=== PATIENT | female | born 1960 | race Caucasian/White ===

== ENCOUNTER 2024-09-16 06:51 | Outpatient (OUT) | payer OTHER, SELFPAY ==
--- OUTSIDE RECORDS SUMMARY | 2024-09-16 06:53 | XMS_ITS | Encounter Summary ---
Author Organization [facility] Address [id number] [address] [place] [address] Care Team Providers Care Orthopedic Nurse Name Role Phone Neo Benjamin MD Primary Care Provider [phone] Reason for Visit * Reason Onset Date Comments Med Refill 07/27/2019 Encounter Details Date Type Department Care Team (Late st Contact Info) Description 07/27/2019 Refill [facility] [address] [place] [address] [place] [place] [address] Agnieszka Cook CMA Essential hypertension; Migraine without aura and without status migrainosus, not intractable Social History Tobacco Use Types Packs/Day Years Used Date Smoking Tobacco: Former Smokeless Tobacco: Never Alcohol Use Standard Drinks/Week Comments Yes 0 (1 standard drink = 0.6 oz pur e alcohol) rarely Childcare Answer Date Recorded Childcare Unknown 09/10/2018 Employment Answer Date Recorded Employment Unknown 09/10/2018 Comments No Sex and Gender Information Value Date Recorded Sex Assigned at Not on file Legal Sex Female 11:35 AM EDT Gender Identity Not on file Sexual Orientation Not on file COVID-19 Exposure Response Date Recorded In the last month, have you been in contact with someone who was confirmed or suspected to have Coronavirus / COVID-19? No / Unsure 07/27/2019 9:30 AM EDT documented as of this encounter Plan of Treatment Not on file documented as of this encounter Visit Diagnoses Diagnosis Essential hypertension Unspecified essential hypertension Migraine without aura and without status migrainosus, not intractable documented in this encounter Additional Health Concerns Infection Onset Date Last Indicated Resolved Time Enteric Rule-Out 11/16/2019 11/16/2019 11/16/2019 7:32 PM EDT COVID-19 Rule-Out 11/19/2019 11/19/2019 11/26/2019 11:13 PM EDT Assessment Noted Time PHQ-9 Depression Total Score: 0 09/06/19 10:00 AM EDT documented as of this encounter Care Teams Orthopedic Nurse Relationship Specialty Start Date End Date Neo Benjamin MD [address], [place] [address] PCP - General Internal Medicine 11/08/22 documented as of this encounter
--- OUTSIDE RECORDS SUMMARY | 2024-09-16 06:53 | XMS_ITS | Encounter Summary ---
Author Organization [facility] Address [address] [place] [address] Care Team Providers Care Embossing Tool Setter Name Role Phone Libby Barger MD Primary Care Provider [phone] Source Comments In the event this information is protected by the Federal Confidentiality of Alcohol and Drug AbusePatient Records regulations: The Federal rules restrict any use of the information to criminally investigate or prosecute any alcohol or drug abuse patient.[facility] Encounter Details Date Type Department Care Team (Late st Contact Info) Description 04/29/2018 Get Medical Advice Urology [address] [place] [address] Nanette Quintana, WHARFINGER CHIEF.COMPUTER AIDED DRAFTER [address] [place], [place] [id number] RE: Non-Urgent Medical Question Social History Tobacco Use Types Packs/Day Years Used Date Smoking Tobacco: Former Cigarettes 0.1 1 0 05/22/2001 - 05/22/2002 Smokeless Tobacco: Former Alcohol Use Standard Drinks/Week Comments No 0 (1 standard drink = 0.6 oz pur e alcohol) PHQ-2 Answer Date Recorded PHQ-2 score 2 04/10/2018 Comments No Sex and Gender Information Value Date Recorded Sex Assigned at Not on file Legal Sex Female 8:10 AM EST Gender Identity Not on file Sexual Orientation Not on file 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 Answer Date of Assessment Author No 09/30/2013 7:00 AM Lauren Bhardwaj MA * Are you blind or do you have serious difficulty seeing, even when wearing glasses? Answer Date of Assessment Author No 09/30/2013 7:00 AM Lauren Bhardwaj MA * Do you have serious difficulty walking or climbing stairs? Answer Date of Assessment Author No 09/30/2013 7:00 AM Lauren Bhardwaj MA * Do you have difficulty dressing or bathing? Answer Date of Assessment Author No 09/30/2013 7:00 AM EDLauren Guzmán MA * Because of a physical, mental, or emotional condition, do you have difficulty doing errands alone such as visiting a doctor's office or shopping? Answer Date of Assessment Author No 09/30/2013 7:00 AM Lauren Bhardwaj MA documented as of this encounter Mental Status * Because of a physical, mental, or emotional condition, do you have serious difficulty concentrating, remembering, or making decisions? Answer Entry Date Author No 09/30/2013 7:00 AM CHRISTIT Lauren Blakely MA documented in this encounter Plan of Treatment Upcoming Encounters Date Type Department Care Team (Latest Contact Info) Description 09/23/2024 8:15 AM EDT Appointment Radiology [address] [place] [address] Complex renal cyst [N28.1] 10/09/2024 9:00 AM EDT [facility] Urology [address] [place] [address] Nanette Quintana, WHARFINGER CHIEF.COMPUTER AIDED DRAFTER [address] [place] [address] kidney with VV post for results and plan. documented as of this encounter Visit Diagnoses Not on filedocumented in this encounter Care Teams Embossing Tool Setter Relationship Specialty Start Date End Date Wonderly, Libby Oliva MD [address] [id number] PCP - General Family Medicine 04/25/18 documented as of this encounter
--- OUTSIDE RECORDS SUMMARY | 2024-09-16 06:53 | XMS_ITS | Clinical Summary ---
Author Organization [facility] Address [address] [place] [id number] Care Team Providers Care Meter Reader Inspector Name Role Phone Libby Barger MD Primary Care Provider [phone] Allergies Active Allergy Reactions Criticality Noted Date Comments Methotrexate Other: See Comments 05/19/2018 Migraine/dizziness, Nausea/diarrhea Penicillins Hives 05/22/2007 Medications multivitamin (MULTIPLE VITAMINS) tablet Take 1 tablet by mouth once daily. 0 4 Active atenolol (TENORMIN) 50 mg tabletIndicatio ns:Acquired complex cyst of kidney,Urinary tract infection without hematuria, site unspecified,Sim ple cyst of kidney,Psoriasi s,Family history of kidney stone Take 50 mg by mouth once daily. Active eletriptan (RELPAX) 40 mg tabletIndicatio ns:Acquired complex cyst of kidney,Urinary tract infection without hematuria, site unspecified,Sim ple cyst of kidney,Psoriasi s,Family history of kidney stone Take 40 mg by mouth as needed. may repeat in 2 hours if necessary Active NALTREXONE HCL (NALTREXONE ORAL) Take 1.5 mg by mouth once daily. Active ALPRAZolam (XANAX) 0.5 mg tablet Take 0.5 mg by mouth. For flying 8 Active Active Problems Problem Noted Date Diagnosed Date Family history of psoriasis 04/10/2018 Bilateral hand pain 04/10/2018 Long-term use of high-risk medication 04/10/2018 Joint stiffness of multiple sites 04/10/2018 Pain in both feet 04/10/2018 Chronic pain of both knees 04/10/2018 Chronic pain of both shoulders 04/10/2018 Pain of both hip joints 04/10/2018 Secondary osteoarthritis of multiple sites 04/10 Aneurysm, splenic artery 11/10/2015 History of kidney stones 11/10/2015 Acquired complex cyst of kidney 05/05/2015 Urinary tract infection 05/05/2015 Urinary tract infection without hematuria 2015 Simple cyst of kidney 05/05/2015 Psoriatic arthritis 09/30/2013 Psoriasis 09/30/2013 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 09/30/2013 Methotrexate, [place] [facility], current use 09/30/2013 Family history of kidney stone 09/30/2013 Overview (09/30/2013): sister, son Encounters Date Type Department Care Team Description 08/13/2024 Get Medical Advice Urology [address] [place] [address] Nanette Quintana, DIPPER OPERATOR.E COMMERCE PROJECT MANAGER Creatine 07/17/2024 8:30 AM EDT [facility] Urology [address] [place] [address] Nanette Quintana, DIPPER OPERATOR.E COMMERCE PROJECT MANAGER Complex renal cyst (Primary Dx); Acquired cyst of kidney 07/17/2024 Telephone Urology [address] [place] [address] Nanette Quintana, DIPPER OPERATOR.E COMMERCE PROJECT MANAGER 07/16/2024 Travel from Last 3 Months Family History Medical History Relation Comments Hypertension Brother Since age 14 and difficult to control Parathyroid disease Father When he was in his forties No thyroid disease Other Relation Status Comments Brother Father Other Social History Tobacco Use Types Packs/Day Years Used Date Smoking Tobacco: Former Cigarettes 0.1 1 0 05/22/2001 - 05/22/2002 Smokeless Tobacco: Former Tobacco Cessation:Counseling Given: Yes Alcohol Use Standard Drinks/Week Comments No 0 (1 standard drink = 0.6 oz pur e alcohol) PHQ-2 Answer Date Recorded PHQ-2 score 2 04/10/2018 Area Deprivation Index Answer Date Curt rded National Score (1-100), lower number is lower ri sk 50 07/17/2024 State Score (1-10), lower number is lower risk 5 07/17/2024 Data from: https://www.neighborhoodatlas.medicine.[facility].edu/. 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 Not on file Last Filed Vital Signs Vital Sign Reading Time Taken Comments Blood Pressure 110/75 10/12/2020 9:31 AM EDT Pulse 67 10/12/2020 9:31 AM EDT Temperature - - Respiratory Rate - - Oxygen Saturation 98% 04/10/2018 9:36 AM EST Inhaled Oxygen Concentration - - Weight 55.3 kg (122 lb) 10/12/2020 9:31 AM EDT Height 163.3 cm (5' 4.3 ) 11/07/2018 8:03 AM EDT Body Mass Index 20.75 11/07/2018 8:03 AM EDT Plan of Treatment Upcoming Encounters Date Type Department Care Team (Latest Contact Info) Description 09/23/2024 8:15 AM EDT Appointment Radiology [address] [place], [place] [id number] Complex renal cyst [N28.1] 10/09/2024 9:00 AM EDT [facility] Urology [address] [place], [place] [id number] Nanette Quintana, DIPPER OPERATOR.E COMMERCE PROJECT MANAGER [address] [place] [address] kidney with VV post for results and plan. Health Maintenance Due Date Last Done Comments Anxiety Screening 1978 Depression Screening [address] Colonography 2005 Colonoscopy 2005 Fecal Occult Blood 2005 Sigmoidoscopy 2005 Pneumococcal Vaccine: 50+ (1 of 1 - PCV) 2010 Cervical Cancer Screening 09/02/20162013 (Specify Other Reason in Comment (Do not use for Postpone)) Cologuard (FIT-DNA) 03/18/2022 03/18/2019 Colorectal Cancer Screening 03/18/2022 Covid-19 Vaccine (5 - 4-2 5 season) 2024 01/31/2024, 01/09/2024, 02/01/2021, Additional history exists Mammogram Screening 03/27/2024 03/27/2023, 03/27/2023, 10/19/2021, Additional history exists Influenza Vaccine (Season Ended) 2024 02/01/2021, 12/31/2019, 01/18/2019, Additional history exists Diabetes Screening 11/07/2026 11/08/2023, 0 10/05/2021, 07/07/2020, Additional history exists Lipid Screening 04/11/2027 04/11/2022, 07/0 09/2021, 07/07/2020 DTaP,Tdap,Td Vaccine (2 - Td or Tdap) 01/18/2029 01/18/2019 RSV Vaccine (1 - 1-dose 75+ series) 11/10/2035 Shingrix Vaccine Completed 04/04/2018, , 11/06/2017 Hepatitis C Screening Completed 07/07/2020 , 04/10/2018, 09/02/2013 Procedures Procedure Name Priority Date/Time Associated Diagnosis Comments HEP REMOTE PANEL BL Routine 04/10/2018 1 0:50 AM EST Elevated LFTs COMPREHENSIVE METABOLIC PANEL Routine 04/10/2018 10:50 AM EST Elevated LFTs from Last 3 Months or Most Recently Relevant to Health Maintenance Results * HEP REMOTE PANEL BL (04/10/2018 10:50 AM EST) Hep B Core Ab, Total Negative Negative 04/10/2018 8:38 PM EST [facility] Hep C Antibody IA Negative Negative 04/10/2018 8:38 PM EST [facility] HBsAg Negative Negative 04/10/2018 8:38 PM EST [facility] Hep B Surface Ab, Qual Negative Negative 04/10/2018 8:38 PM EST [facility] Comment:NEGATIVE Blood specimen (specimen) BLOOD SPECIMEN / Unknown 04/10/2018 10:50 AM EST 04/10/2018 10:52 AM EST Huyen Lovell MD LABORATORY Final Result [facility] [address] [place] [address] * (ABNORMAL) COMP METABOLIC PANEL (04/10/2018 10:50 AM EST) Protein, Total 8.2(H) 6.3 - 8.0 g/dL 04/10/2018 6:46 PM EST [facility] Albumin 4.4 3.9 - 4.9 g/dL 04/10/2018 6:46 PM EST [facility] Calcium 10.5(H) 8.5 - 10.2 mg/dL 04/10/2018 6:46 PM EST [facility] Bilirubin, Total 0.4 0.2 - 1.3 mg/dL 04/10/2018 6:46 PM EST [facility] Alkaline Phosphatase 118 34 - 123 U/L 04/10/2018 6:46 PM EST [facility] AST 30 13 - 35 U/L 04/10/2018 6:46 PM EST [facility] Glucose 90 74 - 99 mg/dL 04/10/2018 6:46 PM EST [facility] Comment: The [place] Diabetes Association (ADA) provides guidance for cutoff values for fasting glucose and random glucose. The ADA defines fasting as no caloric intake for at least 8 hours. Fasting plasma glucose results between 100 to 125 mg/dL indicate increased risk for diabetes (prediabetes). Fasting plasma glucose results greater than or equal to 126 mg/dL meet the criteria for diagnosis of diabetes. In the absence of unequivocal hyperglycemia, results should be confirmed by repeat testing. In a patient with classic symptoms of hyperglycemia or hyperglycemic crisis, random plasma glucose results greater than or equal to 200 mg/dL meet the criteria for diagnosis of diabetes. Reference: Standards of Medical Care in Diabetes 2016, [place] Diabetes Association. Diabetes Care. 2016.39(Suppl 1). BUN 12 7 - 21 mg/dL 04/10/2018 6:46 PM EST [facility] Creatinine 0.85 0.58 - 0.96 mg/dL 04/10/2018 6:46 PM [facility] Sodium 143 136 - 144 mmol/L 04/10/2018 6:46 PM EST [facility] Potassium 4.6 3.7 - 5.1 mmol/L 04/10/2018 6:46 PM [facility] Chloride 103 97 - 105 mmol/L 04/10/2018 6:46 PM [facility] CO2 27 22 - 30 mmol/L 04/10/2018 6:46 PM EST [facility] Anion Gap 13 9 - 18 mmol/L 04/10/2018 6:46 PM [facility] ALT 18 7 - 38 U/L 04/10/2018 6:46 PM [facility] eGFR- >60 04/10/2018 6:46 PM [facility] eGFR-All Other Races >60 . 04/10/2018 6:46 PM [facility] Comment: eGFR (Estimated GFR) Units of measure: mL/min/1.73 meters squared eGFR is derived from the reexpressed MDRD Study equation using the following parameters: serum creatinine, age, gender and race. The creatinine assay has been calibrated to be traceable to IDMS. An eGFR <60 mL/min/1.73m2 for >3 months is consistent with chronic kidney disease. Refer to KDOQI guidelines for clinical interpretation. In patients with unstable renal function, e.g. those with acute kidney injury, the eGFR may not accurately reflect actual GFR. Blood specimen (specimen) BLOOD SPECIMEN / Unknown 04/10/2018 10:50 AM EST 04/10/2018 10:52 AM EST Huyen Lovell MD LABORATORY Final Result [facility] [address] [place] [address] from Last 3 Months or Most Recently Relevant to Health Maintenance Insurance [facility] Care Teams Meter Reader Inspector Relationship Specialty Start Date End Date Casely, Libby Oliva MD [address] [place] [address] PCP - General Family Medicine 04/25/18
--- OUTSIDE RECORDS SUMMARY | 2024-09-16 06:53 | XMS_ITS | Encounter Summary ---
Author Organization [facility] Address [facility] [place] [address] Care Team Providers Care Senior Net Software Developer Name Role Phone Julian Ryan Vick Primary Care Provider [phone] Libby Barger MD Primary Care Provider [phone] Source Comments In the event this information is protected by the Federal Confidentiality of Alcohol and Drug AbusePatient Records regulations: The Federal rules restrict any use of the information to criminally investigate or prosecute any alcohol or drug abuse patient.[facility] Encounter Details Date Type Department Care Team (Late st Contact Info) Description 06/04/2017 Abstract Urology [address] [place] [address] Nanette Quintana, TOOL ROOM ATTENDANT.SEXER [address] [place] [address] Social History Tobacco Use Types Packs/Day Years Used Date Smoking Tobacco: Former Cigarettes 0.1 1 0 05/22/2001 - 05/22/2002 Alcohol Use Standard Drinks/Week Comments No 0 (1 standard drink = 0.6 oz pur e alcohol) Comments No Sex and Gender Information Value Date Recorded Sex Assigned at Not on file Legal Sex Female 8:10 AM EST Gender Identity Not on file Sexual Orientation Not on file 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 Answer Date of Assessment Author No 09/30/2013 7:00 AM EDLauren Guzmán MA * Are you blind or do you have serious difficulty seeing, even when wearing glasses? Answer Date of Assessment Author No 09/30/2013 7:00 AM CHRISTIT Lauren Blakely MA * Do you have serious difficulty walking or climbing stairs? Answer Date of Assessment Author No 09/30/2013 7:00 AM Lauren Bhardwaj MA * Do you have difficulty dressing or bathing? Answer Date of Assessment Author No 09/30/2013 7:00 AM EDT Lauren Blakely MA * Because of a physical, mental, [...] 09/23/2024 8:15 AM EDT Appointment Radiology [address] [place] [address] Complex renal cyst [N28.1] 10/09/2024 9:00 AM EDT [facility] Urology [address] [place], [place] [id number] Nanette Quintana, TOOL ROOM ATTENDANT.SEXER [address] [place] [address] kidney with VV post for results and plan. documented as of this encounter Visit Diagnoses Not on filedocumented in this encounter Care Teams Senior Net Software Developer Relationship Specialty Start Date End Date Ryan Jordan [address] [facility] Risa [facility] [place] [address] PCP - General Family Medicine 05/19/13 04/24/18 Wonderly, Libby Oliva MD [address] [place], [place] [id number] PCP - General Family Medicine 04/25/18 documented as of this encounter
--- OUTSIDE RECORDS SUMMARY | 2024-09-16 06:53 | XMS_ITS | Encounter Summary ---
Author Organization [facility] Address [id number] [address] [place] [address] Care Team Providers Care Emergency Department Physician Name Role Phone Neo Benjamin MD Primary Care Provider [phone] Encounter Details Date Type Department Care Team (Late st Contact Info) Description 11/16/2019 [facility] [address] [facility] [place] [address] [place] [address] Sue Redman CMA Social History Tobacco Use Types Packs/Day Years Used Date Smoking Tobacco: Former Smokeless Tobacco: Never Alcohol Use Standard Drinks/Week Comments Yes 0 (1 standard drink = 0.6 oz pur e alcohol) rarely Social Connection and Isolat ion Panel [NHANES] Answer Date Recorded In a typical week, how many times do you talk on the phone with family, friends, or neighbors? More than three times a week 09/06/2019 How often do you get togethe r with friends or relatives? Once a week 09/06/2019 How often do you attend chur ch or sabianism services? More than 4 times per year 09/06/2019 Do you belong to any clubs o r organizations such as nondenominational groups, unions, fraternal or athletic groups, or school groups? Yes 09/06/2019 How often do you attend meet ings of the clubs or organizations you belong to? More than 4 times per year 09/06/2019 Are you , , di vorced, , never , or living with a partner? 09/06/2019 AUDIT-C Answer Date Recorded Q1: How often do you have a drink containing alc ohol? 2-4 times a month 09/06/2019 Q2: How many drinks containi ng alcohol do you have on a typical day when you are drinking? 1 or 2 09/06/2019 Q3: How often do you have si x or more drinks on one occasion? Never 09/06/2019 Overall Financial Resource Strain (CARDIA) Answe r Date Recorded How hard is it for you to pa y for the very basics like food, housing, medical care, and heating? Not hard at all 09/06/2019 PHQ-2 Answer Date Recorded Total Score 8 09/06/2019 [facility] of Occupat ional Health - Occupational Stress Questionnaire Answer Date Recorded Do you feel stress - tense, restless, nervous, or anxious, or unable to sleep at night because your mind is troubled all the time - these days? Rather much 09/06/2019 Exercise Vital Sign Answer Date Recorde d On average, how many days pe r week do you engage in moderate to strenuous exercise (like a brisk walk)? 7 days 09/06/2019 On average, how many minutes do you engage in exercise at this level? 20 min 09/06/2019 PRAPARE - Transportation Answer Date Re corded In the past 12 months, has l ack of transportation kept you from medical appointments or from getting medications? No 09/2019 In the past 12 months, has l ack of transportation kept you from meetings, work, or from getting things needed for daily living? No 09/06/2019 Childcare Answer Date Recorded Do problems getting child ca re make it difficult for you to work or study? No 09/06/2019 Employment Answer Date Recorded Do you need help finding a l ocal career center and/or a training program? No 09/06/2019 Education Answer Date Recorded What is the highest level of school you have completed or the highest degree you have received? 12th grade 09/06/2019 Comments No Sex and Gender Information Value Date Recorded Sex Assigned at Not on file Legal Sex Female 11:35 AM EDT Gender Identity Not on file Sexual Orientation Not on file COVID-19 Exposure Response Date Recorded In the last month, have you been in contact with someone who was confirmed or suspected to have Coronavirus / COVID-19? No / Unsure 11/13/2019 8:22 AM EDT documented as of this encounter Miscellaneous Notes * Telephone Encounter - Sue Redman CMA - 11/16/2019 2:46 PM EDT ----- Message from Honey Grullon APRN-WATER CONTROL STATION ENGINEER sent at 11/15/2019 3:39 PM EDT ----- CBC - all values WNL * Telephone Encounter - Sue Redman CMA - 11/16/2019 2:46 PM EDT Patient to call back Sue Redman CMA 11/16/19 [id number] * Telephone Encounter - Sue Redman CMA - 11/16/2019 2:46 PM EDT Patient informed documented in this encounter Plan of Treatment Not on file documented as of this encounter Visit Diagnoses Not on filedocumented in this encounter Additional Health Concerns Infection Onset Date Last Indicated Resolved Time Enteric Rule-Out 11/16/2019 11/16/2019 11/16/2019 7:32 PM EDT COVID-19 Rule-Out 11/19/2019 11/19/2019 11/26/2019 11:13 PM EDT Assessment Noted Time PHQ-9 Depression Total Score: 8 09/06/19 20 7:22 AM EDT documented as of this encounter Care Teams Emergency Department Physician Relationship Specialty Start Date End Date Neo Benjamin MD [address], [place] [address] PCP - General Internal Medicine 11/08/22 documented as of this encounter
--- OUTSIDE RECORDS SUMMARY | 2024-09-16 06:53 | XMS_ITS | Encounter Summary ---
Author Organization [facility] s tem Address [id number] [address] [place] [address] Care Team Providers Care Bobbin Winder Name Role Phone Neo Benjamin MD Primary Care Provider [phone] Encounter Details Date Type Department Care Team (Late st Contact Info) Description 04/06/2022 [facility]phone [facility] [address] [place] [address] [place] [address] Kaylie Powell CMA Social History Tobacco Use Types Packs/Day Years Used Date Smoking Tobacco: Former Smokeless Tobacco: Never Alcohol Use Standard Drinks/Week Comments Yes 0 (1 standard drink = 0.6 oz pur e alcohol) rarely Social Connection and Isolation Panel [NHANES] A nswer Date Recorded In a typical week, how many times do you talk on the phone with family, friends, or neighbors? Three times a week 07/03/2021 How often do you get togethe r with friends or relatives? Three times a week 07/03/2021 How often do you attend chur ch or orthodoxy services? Never 07/03/2021 Do you belong to any clubs o r organizations such as advent groups, unions, fraternal or athletic groups, or school groups? No 07/03/2021 How often do you attend meet ings of the clubs or organizations you belong to? Never 07/03/2021 Are you , , di vorced, , never , or living with a partner? 07/03/2021 AUDIT-C Answer Date Recorded Q1: How often do you have a drink containing alc ohol? 2-4 times a month 07/03/2021 Q2: How many drinks containi ng alcohol do you have on a typical day when you are drinking? 1 or 2 07/03/2021 Q3: How often do you have si x or more drinks on one occasion? Never 07/03/2021 Overall Financial Resource Strain (CARDIA) Answe r Date Recorded How hard is it for you to pa y for the very basics like food, housing, medical care, and heating? Not hard at all 07/03/2021 PHQ-2 Answer Date Recorded Total Score 6 04/05/2022 [facility] [place] [employer] of Occupat ional Health - Occupational Stress Questionnaire Answer Date Recorded Do you feel stress - tense, restless, nervous, or anxious, or unable to sleep at night because your mind is troubled all the time - these days? Only a little 07/03/2021 Exercise Vital Sign Answer Date Recorde d On average, how many days pe r week do you engage in moderate to strenuous exercise (like a brisk walk)? 3 days 07/03/2021 On average, how many minutes do you engage in exercise at this level? 30 min 07/03/2021 PRAPARE - Transportation Answer Date Re corded In the past 12 months, has l ack of transportation kept you from medical appointments or from getting medications? No 06/2021 In the past 12 months, has l ack of transportation kept you from meetings, work, or from getting things needed for daily living? No 07/03/2021 Childcare Answer Date Recorded Do problems getting child ca re make it difficult for you to work or study? No 07/03/2021 Employment Answer Date Recorded Do you need help finding a l ocal career center and/or a training program? No 07/03/2021 Purpose - Life Answer Date Recorded I have a purpose and direction in my life. Agree 07/03/2021 Education Answer Date Recorded What is the [...] have Coronavirus / COVID-19? No / Unsure 04/05/2022 7:30 AM EST documented as of this encounter Plan of Treatment Not on file documented as of this encounter Visit Diagnoses Not on filedocumented in this encounter Additional Health Concerns Assessment Noted Time PHQ-9 Depression Total Score: 6 04/05/19 7:36 AM EST documented as of this encounter Care Teams Bobbin Winder Relationship Specialty Start Date End Date Neo Benjamin MD [address] [facility] [address] PCP - General Internal Medicine 11/08/22 documented as of this encounter
--- OUTSIDE RECORDS SUMMARY | 2024-09-16 06:53 | XMS_ITS | Encounter Summary ---
Author Organization [facility] [employer] [facility] [employer] Address [id number] [address] [place] [address] Care Team Providers Care Plug Shaper Hand Name Role Phone Neo Benjamin MD Primary Care Provider [phone] Encounter Details Date Type Department Care Team (Late st Contact Info) Description 11/13/2022 Orders Only [facility] [address] [place] [address] [place] [address] External, Scanning Provider Social History Tobacco Use Types Packs/Day Years [...] often do you attend chur ch or uatsdin services? Never 07/03/2021 Do you belong to any clubs o r organizations such as adventist groups, unions, fraternal or athletic groups, or [...] 07/03/2021 PHQ-2 Answer Date Recorded Total Score 3 07/25/2022 [facility] [place] of Occupat ional Health - Occupational Stress [...] on file Sexual Orientation Not on file documented as of this encounter Plan of Treatment Not on file documented as of this encounter Procedures Procedure Name Priority Date/Time Associated Diagnosis Comments ECHO CONGENITAL COMPLETE WITH CONTRAST Routine 11/12/2022 8:01 AM EDT ECHO CONGENITAL COMPLETE WITH CONTRAST Routine 11/12/2022 8:00 AM EDT documented in this encounter Results * Echo congenital complete W/ contrast (11/12/2022 8:00 AM EDT) Anatomical Region Laterality Modality Chest N/A Ultrasound us Scanning Provider External CV ECHO ORDERABLES Fi nal Result documented in this encounter Visit Diagnoses Not on filedocumented in this encounter Additional Health Concerns Assessment Noted Time PHQ-9 Depression Total Score: 3 07/26/19 23 8:17 AM EDT documented as of this encounter Care Teams Plug Shaper Hand Relationship Specialty Start Date End Date Neo Benjamin MD [address], [place] [address] PCP - General Internal Medicine 11/08/22 documented as of this encounter
--- OUTSIDE RECORDS SUMMARY | 2024-09-16 06:53 | XMS_ITS | Encounter Summary ---
Author Organization [facility] Address [address] [place] [address] Care Team Providers Care Major Assembly Inspector Name Role Phone Ryan Jordan Primary Care Provider Libby Barger MD Primary Care Provider [phone] Source Comments In the event this information is protected by the Federal Confidentiality of Alcohol and Drug AbusePatient Records regulations: The Federal rules restrict any use of the information to criminally investigate or prosecute any alcohol or drug abuse patient.[facility] Encounter Details Date Type Department Care Team (Late st Contact Info) Description 09/28/2015 Patient Msg Urology [address] [place] [address] Sohail Tijerina MD [address] [place], [place] [id number] RE: Appointment Cancellation Request Social History Tobacco Use Types Packs/Day Years [...] 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 documented as of this encounter Visit Diagnoses Not on filedocumented in this encounter Care Teams Major Assembly Inspector Relationship Specialty Start Date End Date JulianRyanTitus [address] [place] [facility] [place] [address] PCP - General Family Medicine 05/19/13 04/24/18 CaselyLibby MD [address] [place], [place] [address] PCP - General Family Medicine 04/25/18 documented as of this encounter
--- OUTSIDE RECORDS SUMMARY | 2024-09-16 06:53 | XMS_ITS | Encounter Summary ---
Author Organization [facility] Address [address] [place] [address] Care Team Providers Care Cte Teacher Name Role Phone Ryan Jordan Primary Care Provider [phone] Libby Barger MD Primary Care Provider [phone] Source Comments In the event this information is protected by the Federal Confidentiality of Alcohol and Drug AbusePatient Records regulations: The Federal rules restrict any use of the information to criminally investigate or prosecute any alcohol or drug abuse patient.[facility] Encounter Details Date Type Department Care Team (Late st Contact Info) Description 09/29/2015 Patient Msg Urology [address] [place] [address] Sohail Tijerina MD [address] [place], [place] [phone] RE: Appointment Cancellation Request Social History Tobacco [...] 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 documented as of this encounter Visit Diagnoses Not on filedocumented in this encounter Care Teams Cte Teacher Relationship Specialty Start Date End Date JulianRyanTitus [address] [facility] [place] [address] PCP - General Family Medicine 05/19/13 04/24/18 CaselyLibby MD [address] [place], [place] [address] PCP - General Family Medicine 04/25/18 documented as of this encounter
--- OUTSIDE RECORDS SUMMARY | 2024-09-16 06:53 | XMS_ITS | Encounter Summary ---
Author [facility] Address [id number] [address] [place] [address] Care Team Providers Care Bar Hostess Name Role Phone Neo Benjamin MD Primary Care Provider [phone] Encounter Details Date Type Department Care Team (Late st Contact Info) Description 04/12/2022 [facility]phone [facility] [address] [place] [address] [place] [address] Jacquelin Best CMA Social History Tobacco Use Types Packs/Day [...] often do you attend chur ch or church services? Never 07/03/2021 Do you belong to any clubs o r organizations such as mu-ism groups, unions, fraternal or athletic groups, or [...] Answer Date Recorded Total Score 6 04/05/2022 [facility] [place] of Occupat ional Health - Occupational Stress [...] have Coronavirus / COVID-19? No / Unsure 04/11/2022 8:19 AM EST documented as of this encounter Miscellaneous Notes * Telephone Encounter - Jacquelin Best CMA - 04/12/2022 11:42 AM EST ----- Message from BARBY Hwang sent at 04/11/2022 2:02 PM EST ----- Cholesterol has improved at 238 from 274; triglycerides have increased from 122 to 174 & LDL has improved from 189 to 152- will discuss further at her next appointment as scheduled * Telephone Encounter - Jacquelin Best CMA - 04/12/2022 11:42 AM EST Called patient no answer left a message to call back. documented in this encounter Plan of Treatment Not on file documented as of this encounter Visit Diagnoses Not on filedocumented in this encounter Additional Health Concerns Assessment Noted Time PHQ-9 Depression Total Score: 6 04/05/19 7:36 AM EST documented as of this encounter Care Teams Bar Hostess Relationship Specialty Start Date End Date Neo Benjamin MD [address] [facility] [place] [address] PCP - General Internal Medicine 11/08/22 documented as of this encounter
--- OUTSIDE RECORDS SUMMARY | 2024-09-16 06:53 | XMS_ITS | Encounter Summary ---
Author Organization [facility] Address [id number] [address] [place] [address] Care Team Providers Care Housekeeping Aide Name Role Phone Neo Benjamin MD Primary Care Provider Encounter Details Date Type Department Care Team (Late st Contact Info) Description 01/02/2021 Orders Only [facility] [address] [place] [address] [place] [address] Deanne Doherty CMA Social History Tobacco Use Types Packs/Day [...] often do you attend chur ch or adventism services? More than 4 times per year 09/06/2019 Do you belong to any clubs o r organizations such as latter day groups, unions, fraternal or athletic groups, or [...] Answer Date Recorded Total Score 8 09/06/2019 [facility] [place] of Occupat ional Health - Occupational Stress [...] center and/or a training program? No 09/06/2019 Purpose - Life Answer Date Recorded Purpose and direction in life Unknown Education Answer Date Recorded What is the [...] have Coronavirus / COVID-19? No / Unsure 01/02/2021 7:54 AM EDT documented as of this encounter Plan of Treatment Not on file documented as of this encounter Visit Diagnoses Not on filedocumented in this encounter Additional Health Concerns Assessment Noted Time PHQ-9 Depression Total Score: 8 09/06/19 20 7:22 AM EDT documented as of this encounter Care Teams Housekeeping Aide Relationship Specialty Start Date End Date Neo Benjamin MD [address] [place] [address] PCP - General Internal Medicine 11/08/22 documented as of this encounter
--- OUTSIDE RECORDS SUMMARY | 2024-09-16 06:53 | XMS_ITS | Encounter Summary ---
Author Organization [facility] Address [id number] [address] [place] [address] Care Team Providers Care Brokerage Office Manager Name Role Phone Neo Benjamin MD Primary Care Provider [phone] Encounter Details Date Type Department Care Team (Late st Contact Info) Description 10/05/2021 Telephone [facility] [address] [place] [address] [place] [address] Annie Platt CMA Social History Tobacco Use Types Packs/Day [...] often do you attend chur ch or islam services? Never 07/03/2021 Do you belong to any clubs o r organizations such as restorationism groups, unions, fraternal or athletic groups, or [...] 07/03/2021 PHQ-2 Answer Date Recorded Total Score 0 07/13/2021 [facility] [place] of Occupat ional Health - Occupational Stress [...] have Coronavirus / COVID-19? No / Unsure 10/05/2021 7:53 AM EDT documented as of this encounter Miscellaneous Notes * Telephone Encounter - Annie Platt CMA - 10/05/2021 5:09 PM EDT ----- Message from BARBY Hwang sent at 10/05/2021 4:24 PM EDT ----- Left breast negative; Right breast needs diagnostic mammogram and US. * Telephone Encounter - Annie Platt CMA - 10/05/2021 5:09 PM EDT Spoke with patient she is awaiting a call from scheduling for additional testing as advised. documented in this encounter Plan of Treatment Not on file documented as of this encounter Visit Diagnoses Not on filedocumented in this encounter Additional Health Concerns Assessment Noted Time PHQ-9 Depression Total Score: 0 07/14/19 22 9:00 AM EDT documented as of this encounter Care Teams Brokerage Office Manager Relationship Specialty Start Date End Date Neo Benjamin MD 605 [facility] [address] PCP - General Internal Medicine 11/08/22 documented as of this encounter
--- OUTSIDE RECORDS SUMMARY | 2024-09-16 06:53 | XMS_ITS | Encounter Summary ---
Author Organization [facility] Address [address] [place] [address] Care Team Providers Care Director Labor Standards Name Role Phone Ryan Jordan Primary Care Provider [phone] Libby Barger MD Primary Care Provider [phone] Source Comments In the event this information is protected by the Federal Confidentiality of Alcohol and Drug AbusePatient Records regulations: The Federal rules restrict any use of the information to criminally investigate or prosecute any alcohol or drug abuse patient.[facility] Encounter Details Date Type Department Care Team (Late st Contact Info) Description 04/11/2018 Patient Msg Rheumatology [address] [place], [place] [phone] Huyen Lovell MD [address] [place] [address] test results Social History Tobacco Use Types Packs/Day Years [...] 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 documented as of this encounter Visit Diagnoses Not on filedocumented in this encounter Care Teams Director Labor Standards Relationship Specialty Start Date End Date Ryan Jordan [address] [facility] [place] [address] PCP - General Family Medicine 05/19/13 04/24/18 Libby Barger MD [address] [facility] [place] [address] PCP - General Family Medicine 04/25/18 documented as of this encounter
--- OUTSIDE RECORDS SUMMARY | 2024-09-16 06:53 | XMS_ITS | Encounter Summary ---
Author Organization [facility] Address [address] [place] [address] Care Team Providers Care Padded Products Inspector Trimmer Name Role Phone Ryan Jordan Primary Care Provider Libby Barger MD Primary Care Provider [phone] Source Comments In the event this information is protected by the Federal Confidentiality of Alcohol and Drug AbusePatient Records regulations: The Federal rules restrict any use of the information to criminally investigate or prosecute any alcohol or drug abuse patient.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 Answer Date of Assessment Author No 09/30/2013 7:00 AM EDT Lauren Blakely MA * Are you blind or do you have serious difficulty seeing, even when wearing glasses? Answer Date of Assessment Author No 09/30/2013 7:00 AM Lauren Bhardwaj MA * Do you have serious difficulty walking or climbing stairs? Answer Date of Assessment Author No 09/30/2013 7:00 AM CHRISTIT Lauren Blakely MA * Do you have difficulty dressing [...] Entry Date Author No 09/30/2013 7:00 AM Lauren Bhardwaj MA documented in this encounter Plan of Treatment Upcoming Encounters Date Type Department Care Team (Latest Contact Info) Description 09/23/2024 8:15 AM EDT Appointment Radiology [address] [place] [address] Complex renal cyst [N28.1] 10/09/2024 9:00 AM EDT [facility] Urology [address] [place] [address] Nanette Quintana, INSTALLER INSPECTOR FINAL.VETERINARY TECHNOLOGIST [address] [place] [address] kidney with VV post for results and plan. documented as of this encounter Visit Diagnoses Not on filedocumented in this encounter Care Teams Padded Products Inspector Trimmer Relationship Specialty Start Date End Date Ryan Jordan [address] [facility] [place] [address] PCP - General Family Medicine 05/19/13 04/24/18 Wonderly, Libby Oliva MD [address] [place], [place] [address] PCP - General Family Medicine 04/25/18 documented as of this encounter
--- OUTSIDE RECORDS SUMMARY | 2024-09-16 06:53 | XMS_ITS | Encounter Summary ---
Author Organization [facility] [employer] [facility] Address [id number] [address] [place] [address] Care Team Providers Care Senior Front End Web Developer Name Role Phone Neo Benjamin MD Primary Care Provider [phone] Reason for Visit * Reason Onset Date Comments Med Refill 09/03/2017 Encounter Details Date Type Department Care Team (Late st Contact Info) Description 09/03/2017 Refill [facility] [address] [place] [address] [place] [address] Dasha Clifton, HIRAM Essential hypertension; Migraine without aura and without status migrainosus, not intractable Social History Tobacco Use Types Packs/Day Years Used Date Smoking Tobacco: Former Alcohol Use Standard Drinks/Week Comments No 0 (1 standard drink = 0.6 oz pur e alcohol) Comments Unknown Sex and Gender Information Value Date Recorded Sex Assigned at Not on file Legal Sex Female 11:35 AM EDT Gender Identity Not on file Sexual Orientation Not on file documented as of this encounter Miscellaneous Notes * Telephone Encounter - Dasha Clifton MA - 09/03/2017 11:59 AM EDT Should be printed please and thanks Dasha Clifton MA 09/03/17 1208 documented in this encounter Plan of Treatment [...] documented as of this encounter Care Teams Senior Front End Web Developer Relationship Specialty Start Date End Date Neo Benjamin MD [address] [facility] [address] [facility] [place] [address] PCP - General Internal Medicine 11/08/22 documented as of this encounter
--- OUTSIDE RECORDS SUMMARY | 2024-09-16 06:53 | XMS_ITS | Encounter Summary ---
Author Organization [facility] Address [address] [place] [address] Care Team Providers Care Blind Hanger Name Role Phone Libby Barger MD Primary Care Provider [phone] Source Comments In the event this information is protected by the Federal Confidentiality of Alcohol and Drug AbusePatient Records regulations: The Federal rules restrict any use of the information to criminally investigate or prosecute any alcohol or drug abuse patient.[facility] Encounter Details Date Type Department Care Team (Late st Contact Info) Description 05/05/2018 Get Medical Advice Rheumatology [address] [place], [place] [phone] Huyen Lovell MD [address] [place] [address] RE: Medication Question (Not Renewal) Social History Tobacco Use Types Packs/Day Years [...] 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 documented as of this encounter Visit Diagnoses Not on filedocumented in this encounter Care Teams Blind Hanger Relationship Specialty Start Date End Date Wonderly, Libby Oliva MD [address] [place] [id number] PCP - General Family Medicine 04/25/18 documented as of this encounter
--- OUTSIDE RECORDS SUMMARY | 2024-09-16 06:53 | XMS_ITS | Encounter Summary ---
Author Organization [facility] Address [address] [place] [address] Care Team Providers Care Head Char Filter Tank Tender Name Role Phone Libby Barger MD Primary Care Provider [phone] Source Comments In the event this information is protected by the Federal Confidentiality of Alcohol and Drug AbusePatient Records regulations: The Federal rules restrict any use of the information to criminally investigate or prosecute any alcohol or drug abuse patient.[facility] Encounter Details Date Type Department Care Team (Late st Contact Info) Description 06/06/2018 Patient Msg Rheumatology [address] [place], [place] [phone] Huyen Lovell MD [address] [place] [address] RE: Request an Appointment Social History Tobacco Use Types Packs/Day Years [...] 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 documented as of this encounter Visit Diagnoses Not on filedocumented in this encounter Care Teams Head Char Filter Tank Tender Relationship Specialty Start Date End Date Wonderly, Libby Oliva MD [address] [place] [address] PCP - General Family Medicine 04/25/18 documented as of this encounter
--- OUTSIDE RECORDS SUMMARY | 2024-09-16 06:53 | XMS_ITS | Encounter Summary ---
Author Organization [facility] Address [id number] [address] [place] [address] Care Team Providers Care Plumbing Hardware Assembler Name Role Phone Neo Benjamin MD Primary Care Provider [phone] Reason for Visit * Reason Onset Date Comments Med Refill 03/05/2024 Encounter Details Date Type Department Care Team (Late st Contact Info) Description 03/05/2024 Refill [facility] [address] [place] [address] [place] [address] Neo Benjamin MD [address], [place], [place] [id number] Social History Tobacco Use Types Packs/Day Years [...] often do you attend chur ch or roman catholic services? Never 07/03/2021 Do you belong to any clubs o r organizations such as adventism groups, unions, fraternal or athletic groups, or [...] care, and heating? Not hard at all 01/21/2023 PHQ-2 Answer Date Recorded Total Score 0 09/11/2023 [facility] of Occupat ional Health - Occupational Stress [...] medical appointments or from getting medications? No 12/31 In the past 12 months, has l ack of transportation kept you from meetings, work, or from getting things needed for daily living? No 01/21/2023 Housing Instability Answer Date Recorde d Are you worried or concerned that in the next two months you may not have stable housing that you own, rent or stay in as a part of a household? No 01/21/2023 Childcare Answer Date Recorded Do problems getting child ca re make it difficult for you to work or study? No 07/03/2021 Employment Answer Date Recorded Do you need help finding a l ocal career center and/or a training program? No 07/03/2021 Hunger Screening Answer Date Recorded Within the past 12 months we worried whether our food would run out before we got money to buy more. Never True 09/11/2023 Within the past 12 months th e food we bought just didn't last and we didn't have money to get more. Never True 09/11/2023 Purpose - Life Answer Date Recorded I [...] Noted Time PHQ-9 Depression Total Score: 0 09/11/19 24 8:19 AM EDT documented as of this encounter Care Teams Plumbing Hardware Assembler Relationship Specialty Start Date End Date Neo Benjamin MD [address] [facility] [place] [address] PCP - General Internal Medicine 11/08/22 documented as of this encounter
--- OUTSIDE RECORDS SUMMARY | 2024-09-16 06:53 | XMS_ITS | Encounter Summary ---
Author Organization [facility] Address [address] [place] [address] Care Team Providers Care Advertising Supervisor Name Role Phone Libby Barger MD Primary Care Provider [phone] Source Comments In the event this information is protected by the Federal Confidentiality of Alcohol and Drug AbusePatient Records regulations: The Federal rules restrict any use of the information to criminally investigate or prosecute any alcohol or drug abuse patient.[facility] Encounter Details Date Type Department Care Team (Late st Contact Info) Description 05/18/2018 Patient Msg Dermatology [place] [address] [place] [id number] Thi Torres MD [address] [place] [address] Appointment Cancellation Request Social History Tobacco Use [...] 09/23/2024 8:15 AM EDT Appointment Radiology [address] [place] [address] Complex renal cyst [N28.1] 10/09/2024 9:00 AM EDT [facility] Urology [address] [place] [address] Nanette Quintana, ELECTRON BEAM PHOTO MASK TECHNICIAN.MAINTENANCE ASSISTANT [address] [place] [address] kidney with VV post for results and plan. documented as of this encounter Visit Diagnoses Not on filedocumented in this encounter Care Teams Advertising Supervisor Relationship Specialty Start Date End Date Wonderly, Libby Oliva MD [address] [id number] PCP - General Family Medicine 04/25/18 documented as of this encounter
--- OUTSIDE RECORDS SUMMARY | 2024-09-16 06:53 | XMS_ITS | Encounter Summary ---
Author Organization [facility] Address [address] [place] [address] Care Team Providers Care Finish Specialist Name Role Phone Julian Ryan Vick Primary Care Provider Libby Barger MD Primary Care Provider [phone] Source Comments In the event this information is protected by the Federal Confidentiality of Alcohol and Drug AbusePatient Records regulations: The Federal rules restrict any use of the information to criminally investigate or prosecute any alcohol or drug abuse patient.[facility] Encounter Details Date Type Department Care Team (Late st Contact Info) Description 10/05/2015 Get Medical Advice Urology [address] [place] [address] Sohail Tijerina MD [address] [place] [address] RE: Non-Urgent Medical Question Social History Tobacco [...] 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 documented as of this encounter Visit Diagnoses Not on filedocumented in this encounter Care Teams Finish Specialist Relationship Specialty Start Date End Date Julian Titus [address] [place] [address] PCP - General Family Medicine 05/19/13 04/24/18 Casely, Libby Oliva MD [address] [place], [place] [id number] PCP - General Family Medicine 04/25/18 documented as of this encounter
--- OUTSIDE RECORDS SUMMARY | 2024-09-16 06:53 | XMS_ITS | Encounter Summary ---
Author Organization [facility] Address [id number] [address] [place] [address] Care Team Providers Care Hood Maker Name Role Phone Neo Benjamin MD Primary Care Provider Encounter Details Date Type Department Care Team (Late st Contact Info) Description 04/04/2021 Refill [facility] [address] [place] [address] [address] [address] Annie Platt CMA Essential hypertension; Migraine without aura and [...] often do you attend chur ch or quaker services? More than 4 times per year 09/06/2019 Do you belong to any clubs o r organizations such as zoroastrian groups, unions, fraternal or athletic groups, or [...] Answer Date Recorded Total Score 8 09/06/2019 [facility] [place] of Occupat ional Health - Occupational Stress [...] Recorded Do you need help finding a [facility] career [facility] and/or a training program? No [...] encounter Miscellaneous Notes * Telephone Encounter - BARBY Resendiz - 04/04/2021 12:31 PM EST Could you please send this one to [employer] deshawn please documented in this encounter Plan of Treatment Not on file documented as of this encounter Visit Diagnoses Diagnosis Essential hypertension Unspecified essential hypertension Migraine without aura and without status migrainosus, not intractable documented in this encounter Additional Health Concerns Assessment Noted Time PHQ-9 Depression Total Score: 8 09/06/19 20 7:22 AM EDT documented as of this encounter Care Teams Hood Maker Relationship Specialty Start Date End Date Neo Benjamin MD [address], [place] [address] PCP - General Internal Medicine 11/08/22 documented as of this encounter
--- OUTSIDE RECORDS SUMMARY | 2024-09-16 06:53 | XMS_ITS | Encounter Summary ---
Author Organization [facility] Address [id number] [address] [place] [address] Care Team Providers Care Commuter Train Operator Name Role Phone Neo Benjamin MD Primary Care Provider [phone] Encounter Details Date Type Department Care Team (Late st Contact Info) Description 10/09/2021 Telephone [facility] [address] [place] [address] [place] [address] Annie Platt CMA Social History [...] often do you attend chur ch or gnosticist services? Never 07/03/2021 Do you belong to any clubs o r organizations such as faith groups, unions, fraternal or athletic groups, or [...] Answer Date Recorded Total Score 0 07/13/2021 [facility] [place] of Occupat ional Health - Occupational Stress [...] have Coronavirus / COVID-19? No / Unsure 10/11/2021 1:38 PM EDT documented as of this encounter Miscellaneous Notes * Telephone Encounter - Annie Platt CMA - 10/09/2021 4:05 PM EDT ----- Message from SOLOMON HwangCLAY CARMAN sent at 10/06/2021 11:18 AM EDT ----- Total cholesterol increased to 274; LDL increased to 189- Will patient consider a medication to lower her cholesterol level? eGFR slight decrease from one year ago to 58- Will monitor for changes in urinary output. * Telephone Encounter - Annie Platt CMA - 10/09/2021 4:05 PM EDT Attempted to contact patient to go over lab results no answer lvm documented in this encounter Plan of Treatment Not on file documented as of this encounter Visit Diagnoses Not on filedocumented in this encounter Additional Health Concerns Assessment Noted Time PHQ-9 Depression Total Score: 0 07/14/19 22 9:00 AM EDT documented as of this encounter Care Teams Commuter Train Operator Relationship Specialty Start Date End Date Neo Benjamin MD [address] [facility] [place] [address] PCP - General Internal Medicine 11/08/22 documented as of this encounter
--- OUTSIDE RECORDS SUMMARY | 2024-09-16 06:53 | XMS_ITS | Encounter Summary ---
Author Organization [facility] Address [id number] [address] [place] [address] Care Team Providers Care Wire Fence Builder Name Role Phone Neo Benjamin MD Primary Care Provider [phone] Reason for Visit * Reason Onset Date Comments Med Refill 12/12/2020 Encounter Details Date Type Department Care Team (Late st Contact Info) Description 12/12/2020 Refill [facility] [address] [place] [address] [place] [address] Farideh Clemons RMA Social History Tobacco Use Types Packs/Day Years [...] often do you attend chur ch or mandaeism services? More than 4 times per year [...] Answer Date Recorded Total Score 8 09/06/2019 [facility] of Occupat ional Health - Occupational Stress [...] Recorded Do you need help finding a [facility] and/or a training program? No [...] have Coronavirus / COVID-19? No / Unsure 12/12/2020 8:03 AM EDT documented as of this encounter Plan of Treatment Not on file documented as of this encounter Visit Diagnoses Not on filedocumented in this encounter Additional Health Concerns Assessment Noted Time PHQ-9 Depression Total Score: 8 09/06/19 20 7:22 AM EDT documented as of this encounter Care Teams Wire Fence Builder Relationship Specialty Start Date End Date Neo Benjamin MD [address] [facility] [place] [address] PCP - General Internal Medicine 11/08/22 documented as of this encounter
--- OUTSIDE RECORDS SUMMARY | 2024-09-16 06:53 | XMS_ITS | Encounter Summary ---
Author Organization [facility] Address [address] [place] [address] Care Team Providers Care Pricing Actuary Name Role Phone Libby Barger MD Primary Care Provider [phone] Source Comments In the event this information is protected by the Federal Confidentiality of Alcohol and Drug AbusePatient Records regulations: The Federal rules restrict any use of the information to criminally investigate or prosecute any alcohol or drug abuse patient.[facility] Encounter Details Date Type Department Care Team (Late st Contact Info) Description 11/18/2018 Get Medical Advice Endocrinology [address] [place] [address] Anoop Cortez NO FORWARDING ADDRESS RE: Medication Question (Not Renewal) Social History [...] 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 Answer Date of Assessment Author No 09/30/2013 7:00 AM Lauren Bhardwaj MA * Do you have difficulty dressing or bathing? Answer Date of Assessment Author No 09/30/2013 7:00 AM CHRISTIT Lauren Blakely MA * Because of a [...] 09/23/2024 8:15 AM EDT Appointment Radiology [address] [place] [address] Complex renal cyst [N28.1] 10/09/2024 9:00 AM EDT [facility] Urology [address] [place] [address] Nanette Quintana, CITY BAILIFF.MAMMOGRAPHY TECH [address] [place] [address] kidney with VV post for results and plan. documented as of this encounter Visit Diagnoses Not on filedocumented in this encounter Care Teams Pricing Actuary Relationship Specialty Start Date End Date Libby Barger MD [address] [place] [address] PCP - General Family Medicine 04/25/18 documented as of this encounter
--- OUTSIDE RECORDS SUMMARY | 2024-09-16 06:53 | XMS_ITS | Encounter Summary ---
Author Organization [facility] Address [id number] [address] [place] [address] Care Team Providers Care School Plant Consultant Name Role Phone Neo Benjamin MD Primary Care Provider [phone] Encounter Details Date Type Department Care Team (Late st Contact Info) Description 01/20/2021 Orders Only [facility] [address] [place] [address] [place] [address] Ref Prov, [place] [address] Social History Tobacco Use Types Packs/Day Years [...] often do you attend chur ch or mu-ism services? More than 4 times per year 09/06/2019 Do you belong to any clubs o r organizations such as yazidism groups, unions, fraternal or athletic groups, or [...] Answer Date Recorded Total Score 8 09/06/2019 [facility] [place] of Occupat ional Health - Occupational Stress [...] Procedure Name Priority Date/Time Associated Diagnosis Comments DRUG SCREEN URINE NON-[place] Routine 01/05/2021 documented in this encounter Results * Drug Screen Urine Non-[facility] (01/05/2021) us Not In System Ref Prov URINE ORDERABLES Final Re sult MANUALLY TRANSCRIBED RESULTS documented in this encounter Visit Diagnoses Not on filedocumented in this encounter Additional Health Concerns Assessment Noted Time PHQ-9 Depression Total Score: 8 09/06/19 20 7:22 AM EDT documented as of this encounter Care Teams School Plant Consultant Relationship Specialty Start Date End Date Neo Benjamin MD [address] [facility] [place] [address] PCP - General Internal Medicine 11/08/22 documented as of this encounter
--- OUTSIDE RECORDS SUMMARY | 2024-09-16 06:53 | XMS_ITS | Clinical Summary ---
Author Organization [facility] tem Address [id number] [address] [place] [address] Care Team Providers Care Building And Grounds Supervisor Name Role Phone Neo Benjamin MD Primary Care Provider [phone] Allergies Active Allergy Reactions Criticality Noted Date Comments Hydromorphone Nausea Low 12/03/2013 Dilaudid Methotrexate GI Disturbance 05/19/2018 Migraine/dizziness, Nausea/diarrhea Penicillins 07/03/2016 Medications atorvastatin (LIPITOR) 10 mg tabletIndications: Mixed hyperlipidemia Take 1 tablet (10 mg total) by mouth in the morning. 90 tablet 1 08/13/19 23 Active Additional Information Patient not taking.Reported on 01/23/2023 atenoloL (TENORMIN) 50 mg tabletIndications: Migraine without aura and without status migrainosus, not intractable,Essent ial hypertension Take 1 tablet (50 mg total) by mouth in the morning for 180 days. 90 tablet 1 03/04/20 24 Active rimegepant 75 mg tablet,disintegrat ingIndications:Rich eder without aura and with status migrainosus, not intractable Dissolve 75 mg on tongue every other day. 90 tablet 2 03/11/20 24 Active eletriptan (RELPAX) 40 mg tabletIndications: Migraine without aura and with status migrainosus, not intractable,Migrai ne without aura and without status migrainosus, not intractable Take 1 tablet (40 mg total) by mouth once as needed for migraine. May repeat in 2 hours if unresolved. Do not exceed 80 mg in 24 hours. 9 tablet 3 03/20/20 24 Active escitalopram (LEXAPRO) 10 mg tabletIndications: Anxiety and depression TAKE ONE TABLET BY MOUTH EVERY DAY 90 tablet 2 06/09/19 25 Active naltrexone HCl, bulk, 100 % powderIndications: Psoriatic arthropathy (CMS-HCC) 3 mg -- Take 1 1/2 tabs in the AM and 1 1/2 tabs in the PM; Dispense 90 tabs 1 refill 1 g 1 06/12/19 25 Active Active Problems Problem Noted Date Diagnosed Date Lung nodule seen on imaging study 02/01/2022 Anxiety and depression 12/18/2021 Lipidemia 09/07/2020 Migraine 09/07/2020 Disturbance, situational, acute 03/11/2019 Chronic pain of both knees 04/10/2018 Bilateral hand pain 04/10/2018 Chronic pain of both shoulders 04/10/2018 Family history of psoriasis 04/10/2018 Joint stiffness of multiple sites 04/10/2018 Long-term use of high-risk medication 04/10/2018 Pain of both hip joints 04/10/2018 Secondary osteoarthritis of multiple sites 04/10 Psoriatic arthritis 09/05/2016 Essential hypertension 09/05/2016 Overview (09/07/2020): September 2014 IMO Update Aneurysm, splenic artery 11/10/2015 History of kidney stones 11/10/2015 Acquired complex cyst of kidney 05/05/2015 Family history of kidney stone 09/30/2013 Overview (09/07/2020): sister, son Immunizations Immunization Administration Dates Next Due COVID-19, mRNA, LNP-S, PF, 100mcg/0.5mL Dose 05/2020 Influenza, Injectable, quadrivalent (PF) 019 Influenza, Recombinant, Quad rivalent, Injectable, Preserv 02/01/2021,12/31/2019 Influenza, Unspecified 02/01/2021,12/31/2019 SARS-COV-2 (COVID-19) Vaccine, Unspecified 02/01 Tdap 01/18/2019 Zoster Vaccine Recombinant 04/04/2018,12/12/2017 Family History Medical History Relation Name Comments Faisal Breast Cancer Cousin Debbie Breast cancer Cousin Debbie Atrial fibrillation Father Breast cancer Maternal Aunt 1 Estefany Breast cancer Maternal Aunt 2 Gisell Breast cancer Maternal Aunt 3 Debbie Heart disease Other Hypertension Other Coronary artery disease Sister Relation Name Status Comments Cousin Debbie Father Maternal Aunt 1 Estefany Maternal Aunt 2 Gisell Maternal Aunt 3 Debbie Other Sister Alive Social History Tobacco Use Types Packs/Day Years Used Date Smoking Tobacco: Former Smokeless Tobacco: Never Tobacco Cessation:Counseling Given: Not Answered Alcohol Use Standard Drinks/Week Comments Yes 0 [...] often do you attend chur ch or orthodox services? Never 07/03/2021 Do you belong to any clubs o r organizations such as hoahaoism groups, unions, fraternal or athletic groups, or [...] care, and heating? Not hard at all 03/11/2024 PHQ-2 Answer Date Recorded Total Score 0 09/11/2023 [facility] [place] of Occupat ional Health - Occupational Stress [...] medical appointments or from getting medications? No 03/01 In the past 12 months, has l ack of transportation kept you from meetings, work, or from getting things needed for daily living? No 03/11/2024 Housing Instability Answer Date Recorde d Are you worried or concerned that in the next two months you may not have stable housing that you own, rent or stay in as a part of a household? No 03/11/2024 Childcare Answer Date Recorded Do problems getting child ca re make it difficult for you to work or study? No 07/03/2021 Employment Answer Date Recorded Do you need help finding a [facility] career center and/or a training program? No 07/03/2021 Hunger Screening Answer Date Recorded Within the past 12 months we worried whether our food would run out before we got money to buy more. Never True 03/11/2024 Within the past 12 months th e food we bought just didn't last and we didn't have money to get more. Never True 03/11/2024 Purpose - Life Answer Date Recorded I [...] on file Sexual Orientation Not on file Last Filed Vital Signs Vital Sign Reading Time Taken Comments Blood Pressure 114/60 09/11/2023 8:19 AM EDT Pulse 88 09/11/2023 8:19 AM EDT Temperature 37 C (98.6 F) 09/11/2023 8:19 AM EDT Respiratory Rate 20 07/25/2022 8:20 AM EDT Oxygen Saturation 98% 09/11/2023 8:19 AM EDT Inhaled Oxygen Concentration - - Weight 63.5 kg (140 lb) 09/11/2023 8:19 AM EDT Height 160 cm (5' 3 ) 03/27/2023 8:22 AM EST Body Mass Index 24.8 03/27/2023 8:22 AM EST Plan of Treatment Health Maintenance Due Date Last Done Comments Mammogram 03/27/2024 03/27/2023, 09/30, 10/05/2021, Additional history exists Adult BMI Screening 09/10/2024 09/11/2023 Depression Screening 09/10/2024 09/11/2023 Tobacco Screening 09/10/2024 09/11/2023 Influenza Vaccine 11/30/2024 02/01/2021, , 12/31/2019, Additional history exists Colon Cancer Screening 3 Barbara paul Cologuard 02/15/2026 02/15/2023, 03/18/2019 DTaP,Tdap and Td Vaccines (2 - Td or Tdap) 01/18/2029 01/18/2019 Zoster (Shingles) Vaccine Completed 04/04/2018, COVID-19 Vaccine Completed 01/31/2024, 05/2020, 02/01/2021, Additional history exists Medical Devices Not on file Procedures Procedure Name Priority Date/Time Associated Diagnosis Comments MAMM SCREENING BILATERAL W CAD Routine 03/27/2023 8:32 AM EST Encounter for screening mammogram for malignant neoplasm of breast COLOGUARD NON-[facility] Routine 02/15/2023 6:30 AM EST Colon cancer screening from Last 3 Months or Most Recently Relevant to Health Maintenance Results * Mammography screening bilateral with CAD (03/27/2023 8:32 AM EST) Anatomical Region Laterality Modality Breast Bilateral Mammography 03/27/2023 8:56 AM EST Narrative 03/27/2023 9:00 AM EST MAMM SCREENING BILATERAL W CAD 03/27/2023 8:20 AM HISTORY: Encounter for screening mammogram for malignant neoplasm of breast TECHNIQUE: Bilateral CC and MLO 3-D tomosynthesis with C-views performed. Computer-aided detection was used in the interpretation of this examination. COMPARISON: 10/05/2021 FINDINGS: Breast density: The breasts are heterogeneously dense, which may obscure small masses. No suspicious calcifications, masses or architectural distortion. A few benign-appearing calcifications are present. IMPRESSION: * No mammographic evidence of malignancy. ASSESSMENT- BI-RADS 2 - Benign Recommendation: Routine screening mammogram in 1 year Finalized by En Armas MD on 03/27/2023 9:00 AM 2 c MAMM 1 YR Procedure Note En Armas MD - 03/27/2023 MAMM SCREENING BILATERAL W CAD 03/27/2023 8:20 AM HISTORY: Encounter for screening mammogram for malignant neoplasm ofbreast TECHNIQUE: Bilateral CC and MLO 3-D tomosynthesis with C-views performed.Computer-aided detection was used in the interpretation of thisexamination. COMPARISON: 10/05/2021 FINDINGS: Breast density: The breasts are heterogeneously dense, which may obscuresmall masses. No suspicious calcifications, masses or architectural distortion. A few benign-appearing calcifications are present. IMPRESSION: * No mammographic evidence of malignancy. ASSESSMENT- BI-RADS 2 - Benign Recommendation: Routine screening mammogram in 1 year Finalized by En Armas MD on 03/27/2023 9:00 AM 2 c MAMM 1 YR Neo Benjamin MD IMG MAMMOGRAPHY ORDERABLES Fin al Result * Cologuard Non-[facility] (02/15/2023 6:30 AM EST) EXTERNAL COLOGUARD Negative Negative 2022 4:28 AM EST [facility] (CLIA #:[id number]) Comment: NEGATIVE TEST RESULT. A negative Cologuard result indicates a low likelihood that a colorectal cancer (CRC) or advanced adenoma (adenomatous polyps with more advanced pre-malignant features) is present. The chance that a person with a negative Cologuard test has a colorectal cancer is less than 1 in 1500 (negative predictive value >99.9%) or has an advanced adenoma is less than 5.3% (negative predictive value 94.7%). These data are based on a prospective cross-sectional study of 10,000 individuals at average risk for colorectal cancer who were screened with both Cologuard and colonoscopy. (Alan Boswell et al, N Engl J Med 2014;370(14):7247-3978) The normal value (reference range) for this assay is negative. COLOGUARD RE-SCREENING RECOMMENDATION: Periodic colorectal cancer screening is an important part of preventive healthcare for asymptomatic individuals at average risk for colorectal cancer. Following a negative Cologuard result, the [place] Cancer Society and U.S. Multi-Society Task Force screening guidelines recommend a Cologuard re-screening interval of 3 years. References: [place] [employer] Guideline for Colorectal Cancer Screening: https://www.cancer.org/cancer/nzjhh-hghtpp-djnljm/jpulfbnez-tchkktnbd-jfmykch/ac s-rec ommendations.html.; Mane GARCIA, Elvira RICHTER, Priyanka AguilarK, Colorectal Cancer Screening: Recommendations for Physicians and Patients from the U.S. Multi-Society Task Force on Colorectal Cancer Screening , Am J Gastroenterology 2017; 112:0795-9372. TEST DESCRIPTION: Composite algorithmic analysis of stool DNA-biomarkers with hemoglobin immunoassay. Quantitative values of individual biomarkers are not reportable and are not associated with individual biomarker result reference ranges. Cologuard is intended for colorectal cancer screening of adults of either sex, 45 years or older, who are at average-risk for colorectal cancer (CRC). Cologuard has been approved for use by the U.S. FDA. The performance of Cologuard was established in a cross sectional study of average-risk adults aged 50-84. Cologuard performance in patients ages 45 to 49 years was estimated by sub-group analysis of near-age groups. Colonoscopies performed for a positive result may find as the most clinically significant lesion: colorectal cancer [4.0%], advanced adenoma (including sessile serrated polyps greater than or equal to 1cm diameter) [20%] or non- advanced adenoma [31%]; or no colorectal neoplasia [45%]. These estimates are derived from a prospective cross-sectional screening study of 10,000 individuals at average risk for colorectal cancer who were screened with both Cologuard and colonoscopy. (Alan Vázquez al, N Engl J Med 2014;370(14):3536-8213.) Cologuard may produce a false negative or false positive result (no colorectal cancer or precancerous polyp present at colonoscopy follow up). A negative Cologuard test result does not guarantee the absence of CRC or advanced adenoma (pre-cancer). The current Cologuard screening interval is every 3 years. ([place] Cancer Society and U.S. Multi-Society Task Force). Cologuard performance data in a 10,000 patient pivotal study using colonoscopy as the reference method can be accessed at the following location: www.[employer]/results. Additional description of the Cologuard test process, warnings and precautions can be found at www.ProficiencyogBioTalk Technologiesrd.Aura XM. Stool specimen (specimen) Rectum structure / Unknown 02/15/2023 6:30 AM EST 02/16/2023 7:23 PM EST Neo Benjamin MD LAB ORDERABLES Final Result Performing Organization Address City/State/[facility] Co de Phone Number [facility] (CLIA #:[id number]) [address] [place] [address], from Last 3 Months or Most Recently Relevant to Health Maintenance Insurance [facility] Care Teams Building And Grounds Supervisor Relationship Specialty Start Date End Date Neo Benjamin MD [address] [facility], [place] [address] PCP - General Internal Medicine 11/08/22
--- OUTSIDE RECORDS SUMMARY | 2024-09-16 06:53 | XMS_ITS | Encounter Summary ---
[id number] [address] [place] [address] Care Team Providers Care Boxing Trainer Name Role Phone Neo Benjamin MD Primary Care Provider [phone] Encounter Details Date Type Department Care Team (Late st Contact Info) Description 03/12[facility]2023 [facility] [address] [place] [address] [place] [address] Sergio Maldonado CMA Social History Tobacco Use Types Packs/Day [...] often do you attend chur ch or yazidi services? Never 07/03/2021 Do you belong to any clubs o r organizations such as congregation groups, unions, fraternal or athletic groups, or [...] 01/21/2023 PHQ-2 Answer Date Recorded Total Score 3 07/25/2022 [facility] [place] of Occupat ional Health - Occupational Stress [...] got money to buy more. Never True 01/21/2023 Within the past 12 months th e food we bought just didn't last and we didn't have money to get more. Never True 01/21/2023 Purpose - Life Answer Date Recorded I [...] encounter Miscellaneous Notes * Telephone Encounter - Sergio Maldonado CMA - 03/12/2023 1:43 PM EST Patient was called to notify that Nurtec clarification was called in and given verbal. No answer lvm to call office. documented in this encounter Plan of Treatment Not on file documented as of this encounter Visit Diagnoses Not on filedocumented in this encounter Additional Health Concerns Assessment Noted Time PHQ-9 Depression Total Score: 3 07/26/19 23 8:17 AM EDT documented as of this encounter Care Teams Boxing Trainer Relationship Specialty Start Date End Date Neo Benjamin MD [address] [facility] [place] [address] PCP - General Internal Medicine 11/08/22 documented as of this encounter
--- OUTSIDE RECORDS SUMMARY | 2024-09-16 06:53 | XMS_ITS | Encounter Summary ---
[facility] Address [id number] [address] [place] [address] Care Team Providers Care Piano Technician Name Role Phone Neo Benjamin MD Primary Care Provider [phone] Encounter Details Date Type Department Care Team (Late st Contact Info) Description 03/20/2024 [facility] [address] [place] [address] [place] [address] Kaylie Powell CMA Social History [...] often do you attend chur ch or amish services? 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 Assembler Cards And Announcements took over the call. Patient states she was told in Nov she did not need an appointment to request refills and she then tried getting them a few weeks ago and was told she needed an appointment. She did a video visit then with PCP last week and he was supposed to send in a refill of her Relpax. She is now very upset because she has went weeks without the medication and just received Nurtec which is not what was supposed to be sent. I explained to her I do not know why the Nurtec was sent in but I would get ahold of PCP and get back with her as soon as possible. 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 I told her I would follow up with her PCP and get back with her. Please advise? documented in this encounter Plan of Treatment Not on file documented as of this encounter Visit Diagnoses Not on filedocumented in this encounter Additional Health Concerns Assessment Noted Time PHQ-9 Depression Total Score: 0 09/11/19 24 8:19 AM EDT documented as of this encounter Care Teams Piano Technician Relationship Specialty Start Date End Date Neo Benjamin MD [address] [facility] [place] [place] [address] PCP - General Internal Medicine 11/08/22 documented as of this encounter
--- OUTSIDE RECORDS SUMMARY | 2024-09-16 06:53 | XMS_ITS | Encounter Summary ---
Author Organization [facility] Address [address] [place] [address] Care Team Providers Care Vehicle Leasing And Rental Manager Name Role Phone Ryan Jordan Primary Care Provider [phone] Libby Barger MD Primary Care Provider [phone] Source Comments In the event this information is protected by the Federal Confidentiality of Alcohol and Drug AbusePatient Records regulations: The Federal rules restrict any use of the information to criminally investigate or prosecute any alcohol or drug abuse patient.[facility] Encounter Details Date Type Department Care Team (Late st Contact Info) Description 04/11/2018 Patient Msg Rheumatology [address] [place], [place] [id number] Huyen Lovell MD [address] [place] [address] test results Social History Tobacco [...] 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 documented as of this encounter Visit Diagnoses Not on filedocumented in this encounter Care Teams Vehicle Leasing And Rental Manager Relationship Specialty Start Date End Date Ryan Jordan [address] [facility] [place] [address] PCP - General Family Medicine 05/19/13 04/24/18 Libby Barger MD [address] [facility] [place] [address] PCP - General Family Medicine 04/25/18 documented as of this encounter
--- OUTSIDE RECORDS SUMMARY | 2024-09-16 06:53 | XMS_ITS | Encounter Summary ---
Author Organization [facility] Address [facility] [place] [address] Care Team Providers Care Doll Wig Maker Rooted Hair Name Role Phone Libby Barger MD Primary Care Provider [phone] Source Comments In the event this information is protected by the Federal Confidentiality of Alcohol and Drug AbusePatient Records regulations: The Federal rules restrict any use of the information to criminally investigate or prosecute any alcohol or drug abuse patient.[facility] Encounter Details Date Type Department Care Team (Late st Contact Info) Description 10/16/2018 Get Medical Advice Rheumatology [address] [place], [place] [id number] Huyen Lovell MD [address] [place] [address] RE: Medication Question (Not Renewal) [...] 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 VM left, requested return call. documented in this encounter Plan of Treatment Upcoming Encounters Date Type Department Care Team (Latest Contact Info) Description 09/23/2024 8:15 AM EDT Appointment Radiology [address] [place], [place] [id number] Complex renal cyst [N28.1] 10/09/2024 9:00 AM EDT [facility] Urology [address] [place] [address] Nanette Quintana, PUTTY MIXER.K 12 PRINCIPAL [address] [place] [address] kidney with VV post for results and plan. documented as of this encounter Visit Diagnoses Not on filedocumented in this encounter Care Teams Doll Wig Maker Rooted Hair Relationship Specialty Start Date End Date Denita, Libby Oliva MD [address] [place] [address] PCP - General Family Medicine 04/25/18 documented as of this encounter
--- OUTSIDE RECORDS SUMMARY | 2024-09-16 06:53 | XMS_ITS | Encounter Summary ---
Author Organization [facility] Address [address] [place] [address] Care Team Providers Care Wrecking Car Driver Name Role Phone Libby Barger MD Primary Care Provider [phone] Source Comments In the event this information is protected by the Federal Confidentiality of Alcohol and Drug AbusePatient Records regulations: The Federal rules restrict any use of the information to criminally investigate or prosecute any alcohol or drug abuse patient.[facility] Encounter Details Date Type Department Care Team (Late st Contact Info) Description 10/08/2018 Get Medical Advice Rheumatology [address] [place], [place] [id number] Huyen Lovell MD [address] [place] [address] RE: Medication Question (Not Renewal) [...] 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 Thank you. Patient's request for medication is as follows: Signed Prescriptions Disp Refills leucovorin (LEUCOVORIN) 5 mg tablet 8 tablet 3 Sig: Take 1-2tabs by mouth the day after methotrexate. Prescription(s) as above. Please process accordingly. Huyen Lovell MD documented in this encounter Plan of Treatment Upcoming Encounters Date Type Department Care Team (Latest Contact Info) Description 09/23/2024 8:15 AM EDT Appointment Radiology [address] [place], [place] [id number] Complex renal cyst [N28.1] 10/09/2024 9:00 AM EDT [facility] Urology [address] [place], [place] [phone] Nanette Quintana, RESOURCE PARAPROFESSIONAL.EXECUTIVE ADMINISTRATOR [address] [place], [place] [id number] schedule CT kidney with VV post for results and plan. documented as of this encounter Visit Diagnoses Diagnosis Psoriatic arthritis (HCC)- Primary Psoriatic arthropathy documented in this encounter Care Teams Wrecking Car Driver Relationship Specialty Start Date End Date Libby Barger MD [address] [place] [address] PCP - General Family Medicine 04/25/18 documented as of this encounter
--- OUTSIDE RECORDS SUMMARY | 2024-09-16 06:53 | XMS_ITS | Encounter Summary ---
Author Organization [facility] Address [id number] [address] [place] [address] Care Team Providers Care Body Cleaner Name Role Phone Neo Carpio MD Primary Care Provider [phone] Encounter Details Date Type Department Care Team (Late st Contact Info) Description 12/13/2022 Telephone [facility] [address] [place] [address] [place] [address] Neo Carpio MD [address] [place] [address] Social History Tobacco Use Types Packs/Day Years [...] often do you attend chur ch or presybeterian services? Never 07/03/2021 Do you belong to any clubs o r organizations such as hindu groups, unions, fraternal or athletic groups, or [...] Answer Date Recorded Total Score 3 07/25/2022 [facility] of Occupat ional Health - Occupational Stress [...] encounter Miscellaneous Notes * Telephone Encounter - Sonya Mcfadden Karyn - 12/13/2022 10:03 AM EDT Verna has been diagnosed for Saturday and wants to know if there is anything she should be doing? Do you want a mychart appt? Please advise * Telephone Encounter - Neo Carpio MD - 12/13/2022 10:03 AM EDT Nothing specific, Should continue standard viral URI care including rest, Tylenol, ibuprofen, hydration. If symptoms are severe and she is not tolerating any activity, feeling very short of breath then she should call and set up video appointment. Thanks, NEO CARPIO MD 12/16/22 documented in this encounter Plan of Treatment Not on file documented as of this encounter Visit Diagnoses Not on filedocumented in this encounter Additional Health Concerns Assessment Noted Time PHQ-9 Depression Total Score: 3 07/26/19 23 8:17 AM EDT documented as of this encounter Care Teams Body Cleaner Relationship Specialty Start Date End Date Neo Carpio MD [address] [facility] [place] [address] PCP - General Internal Medicine 11/08/22 documented as of this encounter
--- OUTSIDE RECORDS SUMMARY | 2024-09-16 06:53 | XMS_ITS | Encounter Summary ---
Author Organization [facility] Address [address] [place] [address] Care Team Providers Care Swimming Pool Installer Name Role Phone Libby Barger MD Primary Care Provider [phone] Source Comments In the event this information is protected by the Federal Confidentiality of Alcohol and Drug AbusePatient Records regulations: The Federal rules restrict any use of the information to criminally investigate or prosecute any alcohol or drug abuse patient.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 documented as of this encounter Visit Diagnoses Not on filedocumented in this encounter Care Teams Swimming Pool Installer Relationship Specialty Start Date End Date Wonderly, Libby Oliva MD [address] [id number] PCP - General Family Medicine 04/25/18 documented as of this encounter
--- OUTSIDE RECORDS SUMMARY | 2024-09-16 06:53 | XMS_ITS | Encounter Summary ---
Author Organization [facility] Address [address] [place] [address] Care Team Providers Care Buy Boat Operator Name Role Phone Libby Barger MD Primary Care Provider [phone] Source Comments In the event this information is protected by the Federal Confidentiality of Alcohol and Drug AbusePatient Records regulations: The Federal rules restrict any use of the information to criminally investigate or prosecute any alcohol or drug abuse patient.[facility] Encounter Details Date Type Department Care Team (Late st Contact Info) Description 04/25/2018 Get Medical Advice Rheumatology [address] [place], [place] [id number] Huyen Lovell MD [address] [place] [address] RE: Test Result Question Social History Tobacco Use Types Packs/Day [...] 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 documented as of this encounter Visit Diagnoses Not on filedocumented in this encounter Care Teams Buy Boat Operator Relationship Specialty Start Date End Date Wonderly, Libby Oliva MD [address] [place] [address] PCP - General Family Medicine 04/25/18 documented as of this encounter
--- OUTSIDE RECORDS SUMMARY | 2024-09-16 06:53 | XMS_ITS | Clinical Summary ---
Author Organization [facility] Address [address] [place] [address] Care Team Providers Care Manager Intelligence Name Role Phone Unavailable Primary Care Provider Unavailabl e Social History Tobacco Use Types Packs/Day Years Used Date Smoking Tobacco: Never Assessed Comments Unknown Sex and Gender Information Value Date Recorded Sex Assigned at Not on file Legal Sex Female 8:24 PM EDT Gender Identity Not on file Sexual Orientation Not on file Last Filed Vital Signs Vital Sign Reading Time Taken Comments Blood Pressure 124/76 06/11/2018 12:00 PM EDT Pulse - - Temperature - - Respiratory Rate - - Oxygen Saturation - - Inhaled Oxygen Concentration - - Weight 56.3 kg (124 lb 3.2 oz) 06/11/2018 12:00 PM EDT Height 162.6 cm (5' 4 ) 06/11/2018 12:00 PM EDT Body Mass Index 21.32 06/11/2018 12:00 PM EDT Plan of Treatment Not on file Insurance [facility]
--- OUTSIDE RECORDS SUMMARY | 2024-09-16 06:54 | XMS_ITS | Encounter Summary ---
Author Organization [facility] Address [address] [place] [address] Care Team Providers Care Physicist Acoustics Name Role Phone Libby Barger MD Primary Care Provider [phone] Source Comments In the event this information is protected by the Federal Confidentiality of Alcohol and Drug AbusePatient Records regulations: The Federal rules restrict any use of the information to criminally investigate or prosecute any alcohol or drug abuse patient.[facility] Encounter Details Date Type Department Care Team (Late st Contact Info) Description 03/26/2022 Patient Msg Cardiology [address] [facility] [place] [id number] Elver Zaidi MD [address] [facility] [place] [address] Appointment Cancellation Request Social History Tobacco Use [...] (1-100), lower number is lower ri sk Not on file 03/07/2020 State Score (1-10), lower number is lower risk N ot on file 03/07/2020 Data from: https://www.neighborhoodatlas.medicine.[facility]/. 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 Answer Date of Assessment Author No 09/30/2013 7:00 AM CHRISTIT Lauren Blakely MA * Are you blind [...] 09/23/2024 8:15 AM EDT Appointment Radiology [address] [place], [place] [id number] Complex renal cyst [N28.1] 10/09/2024 9:00 AM EDT [facility] [address] [place] [address] Nanette Quintana, DISCHARGE DOOR OPERATOR.HOT STRIP MILL SUPERVISOR [address] [place] [address] kidney with VV post for results and plan. documented as of this encounter Visit Diagnoses Not on filedocumented in this encounter Care Teams Physicist Acoustics Relationship Specialty Start Date End Date Casely, Libby Oliva MD [address] [place] [address] PCP - General Family Medicine 04/25/18 documented as of this encounter
--- OUTSIDE RECORDS SUMMARY | 2024-09-16 06:54 | XMS_ITS | Clinical Summary ---
Author Organization [facility] Address [address] [place] [address] Care Team Providers Care Utility Agent Name Role Phone Honey Bernardo HEALTH INFORMATION TECHNOLOGIST Primary Care Provider [phone] Allergies Active Allergy Reactions Criticality Noted Date Comments Hydromorphone Nausea Only,Nausea A nd Vomiting Low 12/03/2013 Dilaudid Methotrexate GI intolerance,Other 05/19/2018 Migraine/dizziness, Nausea/diarrhea Migraine/dizziness, Nausea/diarrhea Penicillins Hives High 05/22/2007 Medications atenolol (Tenormin) 50 mg tablet Take 50 mg by mouth in the morning. 07/25/2022 Active atorvastatin (Lipitor) 10 mg tablet Take 10 mg by mouth in the morning. 04/12/2022 Active escitalopram (Lexapro) 10 mg tablet Take 1 tablet by mouth in the morning. 07/25/2022 Active omeprazole (PriLOSEC) [address] capsule Take 20 mg by mouth twice a day. Active eletriptan (Relpax) 40 mg tablet Take 40 mg by mouth. 07/25/2022 Active SUMAtriptan (Imitrex) 50 mg tablet Take 50 mg by mouth. Active Social History Tobacco Use Types Packs/Day Years Used Date Smoking Tobacco: Never Assessed [place] Safety & Environment Answer Date Rec orded Fear of Current or Ex-Partner Not on file Emotionally Abused Not on file 05/23/2023 Physically Abused Not on file 05/23/2023 Sexually Abused Not on file 05/23/2023 Physically or Sexually Abused Not on file Comments Unknown Sex and Gender Information Value Date Recorded Sex Assigned at Not on file Legal Sex Female 11:45 AM EDT Gender Identity Not on file Sexual Orientation Not on file Last Filed Vital Signs Vital Sign Reading Time Taken Comments Blood Pressure 124/62 08/08/2022 10:16 AM EDT Pulse 80 08/08/2022 10:16 AM EDT Temperature - - Respiratory Rate - - Oxygen Saturation - - Inhaled Oxygen Concentration - - Weight 59.9 kg (132 lb) 08/08/2022 10:16 AM EDT Height 160 cm (5' 3 ) 08/08/2022 10:16 AM EDT Body Mass Index 23.38 08/08/2022 10:16 AM EDT Plan of Treatment Health Maintenance Due Date Last Done Comments CT Colonography 1960 Colonoscopy 1960 FIT-DNA 1960 FOBT 1960 Sigmoidoscopy 1960 Depression Screening 1972 Pap Smear 1981 Cervical Cancer Screening 1990 HPV/Cotest 1990 Mammogram 2000 Colorectal Cancer Screening 03/18/2020 FIT 03/18/2020 03/18/2019 COVID-19 Vaccine ( - 2023-2 5 season) 2023 02/01/2021 Influenza Vaccine (Season Ended) 2024 02/01/2021, 12/31/2019, 01/18/2019 Adult Tetanus 01/18/2029 01/18/2019 Zoster Vaccines Completed 04/04/2018, 12/12/2017 HIB Vaccines Aged Out No longer eligi ble based on patient's age to complete this topic HPV Vaccines Aged Out No longer eligi ble based on patient's age to complete this topic IPV Vaccines Aged Out No longer eligi ble based on patient's age to complete this topic Meningococcal B Vaccine Aged Out No l onger eligible based on patient's age to complete this topic Meningococcal Vaccine Aged Out No juan chata eligible based on patient's age to complete this topic Pneumococcal Vaccine: Pediatrics (0 to 5 Years) and At-Risk Patients (6 to 64 Years) Aged Out No longer eligible b ased on patient's age to complete this topic Rotavirus Vaccines Aged Out No longer eligible based on patient's age to complete this topic Insurance Care Teams Utility Agent Relationship Specialty Start Date End Date Honey Bernardo FNP PCP - General 08/08/22
--- OUTSIDE RECORDS SUMMARY | 2024-09-16 06:54 | XMS_ITS | Encounter Summary ---
[id number] [address] [place] [address] Care Team Providers Care Bag Sewer Name Role Phone Neo Benjamin MD Primary Care Provider [phone] Encounter Details Date Type Department Care Team (Late st Contact Info) Description 10/19/2021 Telephone [facility] [address] [place] [address] [place] [address] Annie Platt CMA Social History [...] often do you attend chur ch or mosque services? Never 07/03/2021 Do you belong to [...] 07/03/2021 PHQ-2 Answer Date Recorded Total Score 9 10/17/2021 [facility] of Occupat ional Health - Occupational Stress [...] have Coronavirus / COVID-19? No / Unsure 10/19/2021 9:32 AM EDT documented as of this encounter Miscellaneous Notes * Telephone Encounter - Annie Platt CMA - 10/19/2021 11:03 AM EDT ----- Message from Honey Grullon APRN-HEALTH SANITARIAN sent at 10/19/2021 10:55 AM EDT ----- Normal mammogram- recheck annually * Telephone Encounter - Annie Platt CMA - 10/19/2021 11:03 AM EDT Spoke with patient about results. She verbalized understanding. documented in this encounter Plan of Treatment Not on file documented as of this encounter Visit Diagnoses Not on filedocumented in this encounter Additional Health Concerns Assessment Noted Time PHQ-9 Depression Total Score: 9 10/18/19 22 10:49 AM EDT documented as of this encounter Care Teams Bag Sewer Relationship Specialty Start Date End Date Neo Benjamin MD [address] [facility] [place] [address] PCP - General Internal Medicine 11/08/22 documented as of this encounter
--- OUTSIDE RECORDS SUMMARY | 2024-09-16 06:54 | XMS_ITS | Encounter Summary ---
Author Organization [facility] Address [address] [place] [address] Care Team Providers Care Third Officer Name Role Phone Libby Barger MD Primary Care Provider [phone] Source Comments In the event this information is protected by the Federal Confidentiality of Alcohol and Drug AbusePatient Records regulations: The Federal rules restrict any use of the information to criminally investigate or prosecute any alcohol or drug abuse patient.[facility] Encounter Details Date Type Department Care Team (Late st Contact Info) Description 01/11/2019 Patient Msg Endocrinology [address] [place] [address] Anoop Cortez [place] [address]ESS RE: Appointment Cancellation Request Social History Tobacco [...] 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 documented as of this encounter Visit Diagnoses Not on filedocumented in this encounter Care Teams Third Officer Relationship Specialty Start Date End Date Libby Barger MD [address] [place] [address] PCP - General Family Medicine 04/25/18 documented as of this encounter
--- OUTSIDE RECORDS SUMMARY | 2024-09-16 06:54 | XMS_ITS | Encounter Summary ---
Author Organization [facility] Address [address] [place] [address] Care Team Providers Care Fiscal Technician Name Role Phone Libby Barger MD Primary Care Provider [phone] Source Comments In the event this information is protected by the Federal Confidentiality of Alcohol and Drug AbusePatient Records regulations: The Federal rules restrict any use of the information to criminally investigate or prosecute any alcohol or drug abuse patient.[facility] Encounter Details Date Type Department Care Team (Late st Contact Info) Description 12/18/2021 Get Medical Advice Urology [address] [place] [address] Nanette Quintana, COUNSELOR/ART THERAPIST.[facility] [address] [place] [address] Follow up Social History Tobacco Use Types Packs/Day Years [...] N ot on file 03/07/2020 Data from: https://www.neighborhoodatlas.medicine.[facility]/. 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 documented as of this encounter Visit Diagnoses Not on filedocumented in this encounter Care Teams Fiscal Technician Relationship Specialty Start Date End Date Wonderly, Libby Oliva MD [address] [place] [address] PCP - General Family Medicine 04/25/18 documented as of this encounter
--- OUTSIDE RECORDS SUMMARY | 2024-09-16 06:54 | XMS_ITS | Encounter Summary ---
Author Organization [facility] Address [address] [place] [address] Care Team Providers Care Carbon Capture Power Plant Operator Name Role Phone Ryan Jordan Primary Care Provider Libby Barger MD Primary Care Provider [phone] Source Comments In the event this information is protected by the Federal Confidentiality of Alcohol and Drug AbusePatient Records regulations: The Federal rules restrict any use of the information to criminally investigate or prosecute any alcohol or drug abuse patient.[facility] Encounter Details Date Type Department Care Team (Late st Contact Info) Description 01/27/2014 Patient Msg Medical Records [address] [place] [address] Provider, Ccf RE: Appointment Cancellation Request Social [...] 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 documented as of this encounter Visit Diagnoses Not on filedocumented in this encounter Care Teams Carbon Capture Power Plant Operator Relationship Specialty Start Date End Date Ryan Jordan [address] [facility] [place] [address] PCP - General Family Medicine 05/19/13 04/24/18 Wonderly, Libby Oliva MD [address] [place], [place] [address] PCP - General Family Medicine 04/25/18 documented as of this encounter
--- OUTSIDE RECORDS SUMMARY | 2024-09-16 06:54 | XMS_ITS | Encounter Summary ---
Author Organization [facility] Address [address] [place] [address] Care Team Providers Care Community Health Navigator Name Role Phone Ryan Jordan Primary Care Provider [phone] Libby Barger MD Primary Care Provider [phone] Source Comments In the event this information is protected by the Federal Confidentiality of Alcohol and Drug AbusePatient Records regulations: The Federal rules restrict any use of the information to criminally investigate or prosecute any alcohol or drug abuse patient.[facility] Encounter Details Date Type Department Care Team (Late st Contact Info) Description 04/09/2014 Patient Msg Medical Records [address] [place] [address] Provider, Ccf RE: Request an Appointment Social History Tobacco [...] 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 documented as of this encounter Visit Diagnoses Not on filedocumented in this encounter Care Teams Community Health Navigator Relationship Specialty Start Date End Date Ryan Jordan [address] [facility] [place] [address] PCP - General Family Medicine 05/19/13 04/24/18 Wonderly, Libby Oliva MD [address] [place], [place] [address] PCP - General Family Medicine 04/25/18 documented as of this encounter
--- OUTSIDE RECORDS SUMMARY | 2024-09-16 06:54 | XMS_ITS | Encounter Summary ---
Author Organization [facility] Address [address] [place] [address] Care Team Providers Care Accessories Repairer Name Role Phone Julian Ryan Vick Primary Care Provider [phone] Libby Barger MD Primary Care Provider [phone] Source Comments In the event this information is protected by the Federal Confidentiality of Alcohol and Drug AbusePatient Records regulations: The Federal rules restrict any use of the information to criminally investigate or prosecute any alcohol or drug abuse patient.[facility] Encounter Details Date Type Department Care Team (Late st Contact Info) Description 01/25/2014 Get Medical Advice Rheumatology [address] [facility] [place], [place] [address] Jaquan Ervin MD [address] [place] [address] RE: Upcoming Appointment Question Social History Tobacco Use Types Packs/Day [...] 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 documented as of this encounter Visit Diagnoses Not on filedocumented in this encounter Care Teams Accessories Repairer Relationship Specialty Start Date End Date Julian Titus [address] [facility] Risa [facility] [place] [address] PCP - General Family Medicine 05/19/13 04/24/18 Libby Barger MD [address] [place] [address] PCP - General Family Medicine 04/25/18 documented as of this encounter
--- OUTSIDE RECORDS SUMMARY | 2024-09-16 06:54 | XMS_ITS | Encounter Summary ---
Author Organization [facility] Address [facility] [place] [address] Care Team Providers Care Railroad Dining Car Stewardess Name Role Phone Julian Ryan Vick Primary Care Provider Libby Barger MD Primary Care Provider [phone]- [phone] Source Comments In the event this information is protected by the Federal Confidentiality of Alcohol and Drug AbusePatient Records regulations: The Federal rules restrict any use of the information to criminally investigate or prosecute any alcohol or drug abuse patient.[facility] Encounter Details Date Type Department Care Team (Late st Contact Info) Description 04/09/2014 Get Medical Advice Rheumatology [address] [facility] [place], [place] [id number] Jaquan Ervin MD [address] [place] [address] RE: Medication Question (Not Renewal) [...] 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 documented as of this encounter Visit Diagnoses Not on filedocumented in this encounter Care Teams Railroad Dining Car Stewardess Relationship Specialty Start Date End Date Ryan Jordan [address] [facility] [place] [address] PCP - General Family Medicine 05/19/13 04/24/18 Libby Barger MD [address] [place] [address] PCP - General Family Medicine 04/25/18 documented as of this encounter
--- OUTSIDE RECORDS SUMMARY | 2024-09-16 06:54 | XMS_ITS | Encounter Summary ---
Author Organization [facility] Address [facility] [place] [address] Care Team Providers Care Forestry Professor Name Role Phone Julian Ryan Vick Primary Care Provider Libby Barger MD Primary Care Provider [phone]- [phone] Source Comments In the event this information is protected by the Federal Confidentiality of Alcohol and Drug AbusePatient Records regulations: The Federal rules restrict any use of the information to criminally investigate or prosecute any alcohol or drug abuse patient.[facility] Encounter Details Date Type Department Care Team (Late st Contact Info) Description 12/09/2013 Get Medical Advice Rheumatology [address] [facility] [place], [place] [address] Jaquan Ervin MD [address] [place] [address] RE: Medication Question (Not Renewal) [...] 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 documented as of this encounter Visit Diagnoses Not on filedocumented in this encounter Care Teams Forestry Professor Relationship Specialty Start Date End Date Ryan Jordan [address] [facility] [place] [address] PCP - General Family Medicine 05/19/13 04/24/18 Libby Barger MD [address] [place] [address] PCP - General Family Medicine 04/25/18 documented as of this encounter
--- OUTSIDE RECORDS SUMMARY | 2024-09-16 06:54 | XMS_ITS | Encounter Summary ---
Author Organization [facility] Address [address] [place] [address] Care Team Providers Care Gate Supervisor Name Role Phone Libby Barger MD Primary Care Provider [phone] Source Comments In the event this information is protected by the Federal Confidentiality of Alcohol and Drug AbusePatient Records regulations: The Federal rules restrict any use of the information to criminally investigate or prosecute any alcohol or drug abuse patient.[facility] Encounter Details Date Type Department Care Team (Late st Contact Info) Description 06/12/2024 Patient Msg Urology [address] [place] [address] Nanette Quintana, CELL OPERATION SUPERVISOR.[facility] [address] [place] [address] Appointment Request Social History Tobacco Use Types Packs/Day Years Used Date Smoking Tobacco: Former Cigarettes 0.1 1 0 05/22/2001 - 05/22/2002 Smokeless Tobacco: Former Alcohol Use Standard Drinks/Week Comments No 0 (1 standard drink = 0.6 oz pur e alcohol) PHQ-2 Answer Date Recorded PHQ-2 score 2 04/10/2018 Area Deprivation Index Answer Date Curt rded National Score (1-100), lower number is lower ri sk 53 04/24/2022 State Score (1-10), lower number is lower risk N ot on file 04/24/2022 Data from: https://www.neighborhoodatlas.medicine.[facility]/. 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 on file Not [...] Assessment Author No 09/30/2013 7:00 AM Lauren Bharwdaj MA * Do you have difficulty dressing [...] Entry Date Author No 09/30/2013 7:00 AM Alon Bhardwaj MA documented in this encounter Plan of Treatment Upcoming Encounters Date Type Department Care Team (Latest Contact Info) Description 09/23/2024 8:15 AM EDT Appointment Radiology [address] [place], [place] [id number] Complex renal cyst [N28.1] 10/09/2024 9:00 AM EDT [facility] Urology [address] [place] [address] Nanette Quintana, CELL OPERATION SUPERVISOR.GATE WATCH [address] [place] [address] kidney with VV post for results and plan. documented as of this encounter Visit Diagnoses Not on filedocumented in this encounter Care Teams Gate Supervisor Relationship Specialty Start Date End Date Wonderly, Libby Oliva MD [address] [place] [address] PCP - General Family Medicine 04/25/18 documented as of this encounter
--- OUTSIDE RECORDS SUMMARY | 2024-09-16 06:54 | XMS_ITS | Referral Summary ---
Author Organization [facility] Address [address] [place] [address] Care Team Providers Care Buckle Strap Puncher Name Role Phone Honey Bernardo BUSINESS MACHINE MECHANIC Primary Care Provider [phone] Allergies Active Allergy Reactions Criticality Noted Date [...] 08/08/2022 10:16 AM EDT Plan of Treatment Not on file Insurance Care Teams Buckle Strap Puncher Relationship Specialty Start Date End Date Honey Bernardo FNP PCP - General 08/08/22
--- OUTSIDE RECORDS SUMMARY | 2024-09-16 06:54 | XMS_ITS | Encounter Summary ---
Author Organization [facility] Address [address] [place] [address] Care Team Providers Care Supervisor Sound Technician Name Role Phone Libby Barger MD Primary Care Provider [phone]- [phone] Source Comments In the event this information is protected by the Federal Confidentiality of Alcohol and Drug AbusePatient Records regulations: The Federal rules restrict any use of the information to criminally investigate or prosecute any alcohol or drug abuse patient.[facility] Encounter Details Date Type Department Care Team (Late st Contact Info) Description 06/15/2024 Patient Msg Urology [address] [place] [address] Nanette Quintana, LOG CHAIN WORKER.[facility] [address] [place] [address] Appointment Request Social History Tobacco [...] N ot on file 04/24/2022 Data from: https://www.neighborhoodatlas.medicine.[facility]/. 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 documented as of this encounter Visit Diagnoses Not on filedocumented in this encounter Care Teams Supervisor Sound Technician Relationship Specialty Start Date End Date Wonderly, Libby Oliva MD [address] [place] [address] PCP - General Family Medicine 04/25/18 documented as of this encounter
--- OUTSIDE RECORDS SUMMARY | 2024-09-16 06:54 | XMS_ITS | Encounter Summary ---
Author Organization [facility] Address [facility] [place] [address] Care Team Providers Care Corsage Maker Name Role Phone Non Staff, Physician Primary Care Provider Unava ilable No/Unknown, Pcp Primary Care Provider Unavailabl e Reason for Referral * (Routine) - Closed Specialty Diagnoses / Procedures Referred By Diana mejia Referred To Contact Radiology Diagnoses Calculus of kidney Procedures SP NEPHROSTOMY TUBE [place] [phone] Phone: tel: fax: [facility] [address] [place] [address] Phone: tel: Referral ID Status Reason Start Date Expiration Date Visits Re quested Visits Authorized [id number] Closed 11/30/2013 11/18/2014 1 1 Encounter Details Date Type Department Care Team (Late st Contact Info) Description 11/18/2013 [place] [id number] Amanda Vickers Transcriber Calculus of kidney (Primary Dx) Social History Tobacco Use Types Packs/Day Years Used Date Smoking Tobacco: Former Cigarettes 0.3 2 Alcohol Use Standard Drinks/Week Comments Yes 0 (1 standard drink = 0.6 oz pur e alcohol) x2 monthly Comments No Sex and Gender Information Value Date Recorded Sex Assigned at Not on file Legal Sex Female 1:47 PM EDT Gender Identity Not on file Sexual Orientation Not on file documented as of this encounter Plan of Treatment Scheduled Orders Name Type Priority Associated Diagnoses Orde r Schedule SP NEPHROSTOMY TUBE PLACEMENT Imaging ROUTINE Calculus of kidney Expected: 11/18/2013 (Approximate), Expires: 11/18/2014 documented as of this encounter Visit Diagnoses Diagnosis Calculus of kidney- Primary documented in this encounter Care Teams Corsage Maker Relationship Specialty Start Date End Date Non Staff, Physician PCP - General 03/19/11 11/26/17 No/Unknown, Pcp Please call [place] [place] [address] PCP - General 11/08/23 documented as of this encounter
--- OUTSIDE RECORDS SUMMARY | 2024-09-16 06:54 | XMS_ITS | Encounter Summary ---
Author Organization [facility] Address [address] [place] [address] Care Team Providers Care Territory Sales Consultant Name Role Phone Libby Barger MD Primary Care Provider [phone]- [phone] Source Comments In the event this information is protected by the Federal Confidentiality of Alcohol and Drug AbusePatient Records regulations: The Federal rules restrict any use of the information to criminally investigate or prosecute any alcohol or drug abuse patient.[facility] Encounter Details Date Type Department Care Team (Late st Contact Info) Description 12/19/2022 Get Medical Advice Urology [address] [place] [address] Nanette Quintana, MANAGER PART.FACILITY COORDINATOR [address] [place], [place] [id number] Bloodwork Social History Tobacco Use Types Packs/Day Years [...] N ot on file 04/24/2022 Data from: https://www.neighborhoodatlas.medicine.[facility]/. 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 [place] [place] [address] kidney with VV post for results and plan. documented as of this encounter Visit Diagnoses Not on filedocumented in this encounter Care Teams Territory Sales Consultant Relationship Specialty Start Date End Date Wonderly, Libby Oliva MD [address] [place] [address] PCP - General Family Medicine 04/25/18 documented as of this encounter
--- OUTSIDE RECORDS SUMMARY | 2024-09-16 06:54 | XMS_ITS | Encounter Summary ---
Author Organization [facility] Address [address] [place] [address] Care Team Providers Care Coal Wheeler Name Role Phone Libby Barger MD Primary Care Provider [phone]- [phone] Source Comments In the event this information is protected by the Federal Confidentiality of Alcohol and Drug AbusePatient Records regulations: The Federal rules restrict any use of the information to criminally investigate or prosecute any alcohol or drug abuse patient.[facility] Encounter Details Date Type Department Care Team (Late st Contact Info) Description 12/23/2018 Get Medical Advice Rheumatology [address] [place], [place] [id number] Huyen Lovell MD [address] [place] [address] RE: Upcoming Appointment Question Social [...] 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 documented as of this encounter Visit Diagnoses Not on filedocumented in this encounter Care Teams Coal Wheeler Relationship Specialty Start Date End Date Wonderly, Libby Oliva MD [address] [place] [address] PCP - General Family Medicine 04/25/18 documented as of this encounter
--- OUTSIDE RECORDS SUMMARY | 2024-09-16 06:54 | XMS_ITS | Encounter Summary ---
Author [facility] Address [id number] [address] [place] [address] Care Team Providers Care Ase Certified Technician Name Role Phone Neo Benjamin MD Primary Care Provider [phone] Encounter Details Date Type Department Care Team (Late st Contact Info) Description 11/22/2021 [facility]phone [facility] [address] [place] [address] [place] [address] Kaylie Powell CMA Social History [...] you attend chur ch or mu-ism services? Never 07/03/2021 Do you belong to any clubs o r organizations such as congregational groups, unions, fraternal or athletic groups, or [...] Answer Date Recorded Total Score 9 10/17/2021 [facility] of Occupat ional Health - Occupational Stress [...] have Coronavirus / COVID-19? No / Unsure 11/20/2021 12:08 PM EDT documented as of this encounter Plan of Treatment Not on file documented as of this encounter Visit Diagnoses Not on filedocumented in this encounter Additional Health Concerns Assessment Noted Time PHQ-9 Depression Total Score: 9 10/18/19 22 10:49 AM EDT documented as of this encounter Care Teams Ase Certified Technician Relationship Specialty Start Date End Date Neo Benjamin MD [address] [place] [address] PCP - General Internal Medicine 11/08/22 documented as of this encounter
--- OUTSIDE RECORDS SUMMARY | 2024-09-16 06:54 | XMS_ITS | Encounter Summary ---
Author Organization Address [address] [place] [address] Care Team Providers Care Tax Staff Accountant Name Role Phone Libby Barger MD Primary Care Provider [phone]- [phone] Source Comments In the event this information is protected by the Federal Confidentiality of Alcohol and Drug AbusePatient Records regulations: The Federal rules restrict any use of the information to criminally investigate or prosecute any alcohol or drug abuse patient. 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 documented as of this encounter Visit Diagnoses Not on filedocumented in this encounter Care Teams Tax Staff Accountant Relationship Specialty Start Date End Date Wonderly, Libby Oliva MD [address] [place] [id number] PCP - General Family Medicine 04/25/18 documented as of this encounter
--- OUTSIDE RECORDS SUMMARY | 2024-09-16 06:54 | XMS_ITS | Encounter Summary ---
Author Organization [facility] Address [facility] [place] [address] Care Team Providers Care Vessel Engineer Name Role Phone Julian Ryan Vick Primary Care Provider Libby Barger MD Primary Care Provider [phone]- [phone] Source Comments In the event this information is protected by the Federal Confidentiality of Alcohol and Drug AbusePatient Records regulations: The Federal rules restrict any use of the information to criminally investigate or prosecute any alcohol or drug abuse patient.[facility] Encounter Details Date Type Department Care Team (Late st Contact Info) Description 12/14/2013 Get Medical Advice Rheumatology [address] [facility] [place], [place] [id number] Jaquan Ervin MD [address] [place] [address] RE: Medication Question (Not Renewal) [...] 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 documented as of this encounter Visit Diagnoses Not on filedocumented in this encounter Care Teams Vessel Engineer Relationship Specialty Start Date End Date Ryan Jordan [address] [facility] [place] [address] PCP - General Family Medicine 05/19/13 04/24/18 Libby Barger MD [address] [place] [address] PCP - General Family Medicine 04/25/18 documented as of this encounter
--- OUTSIDE RECORDS SUMMARY | 2024-09-16 06:54 | XMS_ITS | Clinical Summary ---
Author Organization [employer] [facility]. Address [address] [place] [address] Care Team Providers Care Cost Estimating Manager Name Role Phone No/Unknown, Pcp Primary Care Provider Unavailabl e Allergies Active Allergy Reactions Criticality Noted Date Comments Hydromorphone Nausea and Vomiting Low 12/03/2013 Penicillin G Hives High 03/13/2011 Medications atenolol (TENORMIN) 50 MG tablet Take 50 mg by mouth daily. pm Active sumatriptan (IMITREX) 50 MG tablet Take 50 mg by mouth as needed. Active ALPRAZolam (XANAX) 0.25 MG tablet Take 0.25 mg by mouth as needed for Anxiety (Takes when traveling by airplane). Active escitalopram (LEXAPRO) 10 MG tablet Take 10 mg by mouth daily. Active rimegepant (NURTEC) 75 MG disintegrating tablet Take 75 mg by mouth as needed for Migraine. Active multivitamin (THERAGRAN-M; CENTRUM) Tab Take 1 tablet by mouth daily. Active HYDROcodone-acetam inophen (NORCO, LORTAB, VICODIN) 10-325 MG tablet Take 1 tablet by mouth every 4 hours as needed for Pain. 18 tablet 11/08/2023 5:27 PM EDT 4 Active ondansetron ODT (ZOFRAN-ODT) 4 MG disintegrating tablet Dissolve 1 tablet by mouth every 6 hours as needed for Nausea. 12 tablet 2 11/08/2023 5:27 PM EDT 4 Active Active Problems Problem Noted Date Diagnosed Date Hammer toe of left foot 11/08/2023 Hallux valgus (acquired), left foot 11/08/2023 Metatarsalgia of left foot 11/08/2023 Pain in left foot 11/08/2023 Renal calculi 12/03/2013 Assessment & Plan (03/03/2014 8:04 AM EST): POD#1 left PCNL Doing well Labs: WNL PLAN: Ok to D/C home D/C [place] Assessment & Plan (12/06/2013 8:37 AM EDT): AFVSS Cultures no growth On rocephin/levaquin Ambulating Feeling well Plan -D/C today -Levaquin x 1wk -Does not want narcotics. Ok to take tylenol for pain. -Will call office Saturday to determine followup with Dr. Sam Assessment & Plan (12/05/2013 10:44 AM EDT): MICHELLE T 101.8 last evening Cultures sent On rocephin/levaquin Feeling better Ambulating Tolerating po Plan -Keep today -May discharge tmw if afebrile x 24h -Will need abx on discharge to treat Proteus UTI Assessment & Plan (12/04/2013 10:19 AM EDT): #1 POD low grade temp. Pt experiencing nausea. Unsuccessful percutaneous stone extraction yesterday. Will get pt oob with help Diet as gin. Plan when stable go home with neph tube and nephrostogram next week. Unspecified essential hypertension Overview (10/17/2014): September 2014 IMO Update Lipidemia GE reflux Migraine Psoriasis Psoriatic arthritis ([facility]) Renal calculi Social History Tobacco Use Types Packs/Day Years Used Date Smoking Tobacco: Former Cigarettes 0.3 2 Smokeless Tobacco: Never Tobacco Cessation:Counseling Given: Not Answered Alcohol Use Standard Drinks/Week Comments No 0 (1 standard drink = 0.6 oz pur e alcohol) Comments No Sex and Gender Information Value Date Recorded Sex Assigned at Not on file Legal Sex Female 1:47 PM EDT Gender Identity Not on file Sexual Orientation Not on file Last Filed Vital Signs Vital Sign Reading Time Taken Comments Blood Pressure 110/63 11/08/2023 4:50 PM EDT Pulse 64 11/08/2023 4:50 PM EDT Temperature 36.1 C (97 F) 11/08/2023 4:45 PM EDT Respiratory Rate 13 11/08/2023 4:50 PM EDT Oxygen Saturation 98% 11/08/2023 4:50 PM EDT Inhaled Oxygen Concentration - - Weight 62 kg (136 lb 11 oz) 11/08/2023 10:17 AM EDT Height 161.3 cm (5' 3.5 ) 11/05/2023 2:34 PM EDT Body Mass Index 23.83 11/05/2023 2:34 PM EDT Plan of Treatment Health Maintenance Due Date Last Done Comments HIV TESTING 11/10/1975 HEP C 1978 YEARLY PHYSICAL ADULT 18+ 1978 PAP SCREEN 1981 COLONOSCOPY 2005 FECAL OCCULT BLOOD 2005 PNEUMOCOCCAL (50y+) (1 of 1 - PCV) 2010 ZOSTER (SHINGLES) (1 of 2) 2010 COLOGUARD 03/18/2022 03/18/2019 COLORECTAL CANCER SCREENING 03/18/2022 COVID-19 Vaccine ( season) 2023 01/04/2023, 01/15/2022, 02/01/2021, Additional history exists INFLUENZA (Season Ended) 2024 023, 01/15/2022, 02/01/2021, Additional history exists MAMMOGRAM 03/27/2025 03/27/2023, 07/0 09/2021, 07/07/2020, Additional history exists LIPID PROFILE 04/11/2027 04/11/2022, 07/0 09/2021, 07/07/2020 RSV Immunization - age 60 years and older or (1 - 1-dose 75+ series) 11/10/2035 TDAP (ONE-TIME) Completed 01/18/2019 RSV Immunization < 20 months Aged Out No longer eligible based on patient's age to complete this topic Medical Devices Implanted Type Area [employer] Device Identifier Shelf Expiration Date Model / Serial / Lot Catheters And Kits Nephrostomy Flexima W/O Locking Pigtail 01/23 27-180 - [id number] Implanted:Qty: 1 on 12/03/2013 by Nicanor Sam D.O. at [facility] Left: Kidney [employer] 08/29/2016 27-180 / [id number] / [id number] Catheters And Kits Nephrostomy Flexima W/O Locking Pigtail 01/23 27-180 - [id number] Implanted:Qty: 1 on 03/02/2014 by Nicanor Sam D.O. at [facility] [employer] 09/29/2016 27-180 / [id number] / [id number] Plate Fusion Mtp Dorsiflexed 7 Hole 7.5 Degree Trimed Inc Mtp7.5l-7s - Snone - [id number] Implanted:Qty: 1 on 11/08/2023 by Rogerio Ray DPM at [facility] Left: Foot [employer] MTP7.5L-7 S / NONE / NONE Screw Locking Va 2.7x14mm Ti5 Ti Trxv2.7-14t Trimed [employer] Trxv2.7-14 T - Snone - [id number] Implanted:Qty: 3 on 11/08/2023 by Rogerio Ray, RADHAM at [facility] Left: Foot [employer] TRXV2.7-1 4 T / NONE / NONE Screw Locking Va Ti5 Ti 2.7x16mm Trxv2.7-16t Trimed [employer] Trxv2.7-16 T - Snone - [id number] Implanted:Qty: 1 on 11/08/2023 by Rogerio Ray DPM at [facility] Left: Foot [employer] TRXV2.7-1 6 T / NONE / NONE Screw Va Locking Titanium T15 2.7x18mm [employer] Trxv2.7-18 T - Snone - [id number] Implanted:Qty: 1 on 11/08/2023 by Rogerio Ray, RADHAM at [facility] Left: Foot [employer] TRXV2.7-1 8 T / NONE / NONE Explanted Type Area [employer]in[employer] Device Identifier Shelf Expiration Date Model / Serial / Lot K-Wire [id number] Wire-1.1/100 Trimed [employer] Wire-1.1/100 - Snone - [id number] Explanted:Qty: 2 on 11/08/2023 by Rogerio Ray DPM at [facility] Left: Foot [employer] WIRE-1.1/1 00 / NONE / NONE Plate Tack Threaded 1.6x65mm Tacplt-1.6/065 t Trimed [employer] Tacplt-1.6/065 t - Snone - [id number] Explanted:Qty: 2 on 11/08/2023 by Rogerio Ray DPM at [facility] Left: Foot [employer] TACPLT-1.6 /065T / NONE / NONE Screw Locking Va T15 Ti 2.7x10mm Tr[employer] Inc Trxv2.7-10 T - Snone - [id number] Explanted:Qty: 1 on 11/08/2023 by Rogerio Ray DPM at [facility] Left: Foot [employer] TRXV2.7-10 T / NONE / NONE Insurance [facility] Advance Directives For more information, please contact: [phone] * Full Code (Latest Code Status on File) Date Activated Date Inactivated Comments 03/02/2014 9:05 AM 03/03/2014 7:03 PM * Full Code Date Activated Date Inactivated Comments 12/03/2013 4:01 PM 12/06/2013 7:44 PM Healthcare Agents on File Name Relationship Healthcare Agent Relationship Communication Nick Monsivais Patient Buffer Nickel Stated Representat cathy Care Teams Cost Estimating Manager Relationship Specialty Start Date End Date No/Unknown, Pcp Please call [facility] [place] [address] PCP - General 11/08/23
--- OUTSIDE RECORDS SUMMARY | 2024-09-16 06:54 | XMS_ITS | Encounter Summary ---
Author Organization [facility] Address [address] [place] [address] Care Team Providers Care Spray Crew Name Role Phone Non Staff, Physician Primary Care Provider Unava ilable No/Unknown, Pcp Primary Care Provider Unavailabl e Reason for Referral * (Routine) - Closed Specialty Diagnoses / Procedures Referred By Diana mejia Referred To Contact Diagnoses Renal calculus Procedures [place] [id number] Phone: tel: fax: Referral ID Status Reason Start Date Expiration Date Visits Re quested Visits Authorized [id number] Closed 12/11/2013 12/11/2014 1 1 Encounter Details Date Type Department Care Team (Late st Contact Info) Description 12/11/2013 Transcribe Orders Outpatient Scheduling [place] [address] Yodit Kan Transcriber Renal calculus (Primary Dx) Social History Tobacco Use Types Packs/Day Years Used Date Smoking Tobacco: Former Cigarettes 0.3 2 Smokeless Tobacco: Never Alcohol Use Standard Drinks/Week Comments No 0 (1 standard drink = 0.6 oz pur e alcohol) methotrexate Comments No Sex and Gender Information Value Date Recorded Sex Assigned at Not on file Legal Sex Female 1:47 PM EDT Gender Identity Not on file Sexual Orientation Not on file documented as of this encounter Plan of Treatment Not on file documented as of this encounter Results * SP NEPHROSTOGRAM (12/16/2013 8:43 AM EDT) Anatomical Region Laterality Modality X-Ray Angiograph y 12/16/2013 8:43 AM EDT Narrative 12/16/2013 11:56 AM EDT Order Number: [id number] Date of Exam: Dec 16 2013 8:43AM COMMENTS: POSS. TUBE REMOVAL EXAMINATION: SP-NEPHROSTOGRAM CLINICAL HISTORY: Nephrostomy tube removal. Calculus right kidney. TECHNIQUE: Patient informed of risks and benefits of procedure, inform consent was obtained. Under fluoroscopy, contrast was injected and a nephrostogram performed. RESULTS: The left collecting system is unremarkable. The left ureter has a normal course and caliber. There is no evidence for obstruction or ureteral stone. Catheter was removed and patient tolerated the procedure well. There were no complications. IMPRESSION: Successful removal of previously placed left percutaneous nephrostomy catheter with nephrostogram as described. Name: JOCE DAMICO MR#: [id number] : 1960 Sex: F Dictating Physician: DRISS JANSEN DO Electronically Signed: Dec 16 2013 11:54AM Dictated: Dec 16 2013 8:46AM Transcribed: Q23 on Dec 16 2013 9:29AM Nicanor GIBSON ORDERABLES Final Result documented in this encounter Visit Diagnoses Diagnosis Renal calculus- Primary Calculus of kidney Renal calculus Calculus of kidney documented in this encounter Care Teams Spray Crew Relationship Specialty Start Date End Date Non Staff, Physician PCP - General 03/19/11 11/26/17 No/Unknown, Pcp Please call [place] [place] [address] PCP - General 11/08/23 documented as of this encounter
--- OUTSIDE RECORDS SUMMARY | 2024-09-16 06:54 | XMS_ITS | Encounter Summary ---
Author Organization [facility] Address [facility] [place] [address] Care Team Providers Care Building Custodian Name Role Phone Libby Barger MD Primary Care Provider [phone] Source Comments In the event this information is protected by the Federal Confidentiality of Alcohol and Drug AbusePatient Records regulations: The Federal rules restrict any use of the information to criminally investigate or prosecute any alcohol or drug abuse patient.[facility] Encounter Details Date Type Department Care Team (Late st Contact Info) Description 05/08/2019 Patient Msg Rheumatology [address] [place] [address] Huyen Lovell MD [address] [place] [address] RE: Appointment Cancellation Request Social History Tobacco [...] 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 documented as of this encounter Visit Diagnoses Not on filedocumented in this encounter Care Teams Building Custodian Relationship Specialty Start Date End Date Wonderly, Libby Oliva MD [address] [place] [address] PCP - General Family Medicine 04/25/18 documented as of this encounter
--- NOTE | 2024-09-16 06:57 | MM_ITS ---
Patient Name: JOCE DAMICO MR#: [id number] : 1960 Exam Date: 09/16/2024 Ordering Doctor: RAMÓN FLORES RADIOLOGY REPORT PROCEDURE: MM TOMOSYNTHESIS SCREENING BI COMPARISON: MM TOMOSYNTHESIS SCREENING BI, 03/27/2023. MM DIAGNOSTIC MAMMO UNILAT RT, 10/19/2021. MM TOMOSYNTHESIS SCREENING BI, 10/05/2021. MM TOMOSYNTHESIS SCREENING BI, 07/07/2020. INDICATIONS: screening for malignant neoplasm of breast Calculator Name NCI Breast Cancer Risk Assessment Tool 5 Year Breast Cancer Risk 1.90% Lifetime Breast Cancer Risk 8.00% Personal Breast Cancer No Personal Ovarian Cancer No Treatments None Family Cancers Aunt-maternal with breast cancer at age ~64; Cousin-maternal with lung cancer at age ~60. LOCATION: [facility] BREAST COMPOSITION: The breasts are heterogeneously dense,which may obscure small masses. FINDINGS: DIAGNOSTIC CATEGORY 1--NEGATIVE. RIGHT BREAST: No significant suspicious finding. LEFT BREAST: No significant suspicious finding. RECOMMENDATIONS: ROUTINE MAMMOGRAM AND CLINICAL EVALUATION IN 12 MONTHS. PLEASE NOTE: A NORMAL MAMMOGRAM DOES NOT EXCLUDE THE POSSIBILITY OF BREAST CANCER. A CLINICALLY SUSPICIOUS PALPABLE LUMP SHOULD BE BIOPSIED. Dictated by: Earnest Ansari DO on 09/16/2024 at 16:05 Approved by: Earnest Ansari DO on 09/16/2024 at 16:32
== END 2024-09-16 06:52 | disposition home or self-care (01) ==
LOC: MAMMO 06:51
PROVIDERS: PCP Nurse Practitioner Family; Visit Provider Nurse Practitioner Family
DX: Z12.31 Encounter for screening mammogram for malignant neoplasm of breast (principal); Z80.3 Family history of malignant neoplasm of breast; Z80.1 Family history of malignant neoplasm of trachea, bronchus and lung
CPT/HCPCS: 77063; 77067